=== PATIENT | female | born 1995 | race Caucasian/White ===

== ENCOUNTER → 2017-09-14 14:49 | Outpatient (CLI) | payer OTHER, SELFPAY ==
[2017-09-14 16:51] LABS: ALB/GLOB Ratio 0.9 RATIO (0.9-2.4); AST(SGOT) 13 U/L (15-37); Alanine Aminotransfer ALT/SGPT 16 U/L (13-56); Albumin, Serum 3.5 g/dL (3.2-5.0); Alkaline Phosphatase 53 U/L (45-117); Anion Gap 6 (5-15); BUN 19 mg/dL (7-18); BUN/Creat Ratio 20.3 RATIO (10-20); Chloride 103 mmol/L (98-107); Creatinine, Serum 0.94 mg/dL (0.55-1.02); EST Glomerular Filtration Rate 78 mL/min (>60); Est Glom Filt Rate - Afr Amer 94 mL/min (>60); Globulin 4.1 g/dL (2.2-4.2); Glucose 188 mg/dL (74-106); Potassium 4.1 mmol/L (3.5-5.1); Protein, Total 7.6 g/dL (6.4-8.2); Sodium Level 138 mmol/L (136-145)
[2017-09-14 16:59] LABS: Microalbumin,Random Urine 25.9 mg/L (NO RANGE EST.)
[2017-09-14 18:59] LABS: Hemoglobin A1c 7.4 % (4.2-6.3)
== END ==
PROVIDERS: Family Provider Internal Medicine; PCP Internal Medicine; Visit Provider Nurse Practitioner
DX: E10.9 Type 1 diabetes mellitus without complications (principal)
CPT/HCPCS: 36415; 80053; 82043; 82570; 83036

== ENCOUNTER → 2018-01-06 15:47 | Outpatient (CLI) | payer OTHER, SELFPAY | PROVIDERS: Visit Provider Obstetrics & Gynecology | DX: Z12.4 Encounter for screening for malignant neoplasm of cervix (principal) | CPT/HCPCS: 88175; G0145 ==

== ENCOUNTER → 2018-05-02 11:59 | Outpatient (CLI) | payer OTHER, SELFPAY ==
[2018-05-02 10:53] VITALS: BMI 24.9
[2018-05-02 13:45] LABS: Hemoglobin A1c 7.5 % (4.2-6.3)
[2018-05-02 13:55] LABS: AST(SGOT) 21 U/L (15-37); Alanine Aminotransfer ALT/SGPT 25 U/L (13-56); Albumin, Serum 3.6 g/dL (3.2-5.0); Alkaline Phosphatase 67 U/L (45-117); Anion Gap 9 (5-15); BUN 15 mg/dL (7-18); BUN/Creat Ratio 17.9 RATIO (10-20); Chloride 102 mmol/L (98-107); Creatinine, Serum 0.84 mg/dL (0.55-1.02); EST Glomerular Filtration Rate 88 mL/min (>60); Est Glom Filt Rate - Afr Amer 107 mL/min (>60); Globulin 3.7 g/dL (2.2-4.2); Glucose 188 mg/dL (74-106); Potassium 4.2 mmol/L (3.5-5.1); Protein, Total 7.3 g/dL (6.4-8.2); Sodium Level 139 mmol/L (136-145)
--- OUTSIDE RECORDS SUMMARY | 2018-08-04 02:18 | XMS RPT_ITS ---
:1995 Author Organization OHIP Support Name Relationship Address Phone TAMANNA GRANADO Unavailable [address] + [place] [address] CR CEBALLOS Unavailable [address] + [place] [address] [facility] Unavailable [address] [place] [address] TAMANNA GRANADO Unavailable [address] + [place] [address] CR CEBALLOS Unavailable [address] + [place] [address] [facility] Unavailable [address] [place] [address] CR CEBALLOS Unavailable [address] + [place] [address] [facility] Unavailable [address] [place] [address] CR CEBALLOS Unavailable [address] + [place] [address] [facility] Unavailable [address] [place] [address] CR CEBALLOS Unavailable [address] + [place] [address] [facility] Unavailable [address] [place] [address] BRICE GRANADOISSA/MONCOH Unavailable [address] + [place] [address] [facility] Unavailable [address] + [place] [address] CR CEBALLOS Unavailable [address] + [place] [address] [facility] Unavailable [address] [place] [address] MONCHO GRANADO Unavailable [address] + [place] [address] NOT GIVEN Unavailable [address] + [place] [address] CR CEBALLOS Unavailable [address] [facility] + [place] [address] STROCR POZO Unavailable [address] + [place] [address] [facility] Unavailable [address] [place] [address] CR CEBALLOS Unavailable [address] + [place] [address] [facility] Unavailable [address] [place] [address] CR CEBALLOS Unavailable [address] + [place] [address] [facility] Unavailable [address] [place] [address] Care Team Providers Name Role Phone Dr. Emery Yu Attending Unavailable Dr. Emery Yu Admitting Unavailable Shaina Marr VEHICLE OPERATOR TECHNICIAN-C Attending Unavailable Maria A, Yen Referring Unavailable ShookShaina VEHICLE OPERATOR TECHNICIAN-C Attending Unavailable ShookShaina VEHICLE OPERATOR TECHNICIAN-C Referring Unavailable Maria A, Yen Primary Care Unavailable ShoShaina suarez VEHICLE OPERATOR TECHNICIAN-C Attending Unavailable Maria A, Yen Referring Unavailable ShookShaina VEHICLE OPERATOR TECHNICIAN-C Attending Unavailable Maria A, Yen Referring Unavailable Maria A, Yen Primary Care Unavailable ShoShaina suarez VEHICLE OPERATOR TECHNICIAN-C Attending Unavailable Maria A, Yen Referring Unavailable Maria A, Yen Primary Care Unavailable ShoShaina suarez VEHICLE OPERATOR TECHNICIAN-C Attending Unavailable Maria A, Yen Referring Unavailable ShookShaina VEHICLE OPERATOR TECHNICIAN-C Attending Unavailable Maria A, Yen Referring Unavailable Shelbie Kemp Attending Unavailable ShookShaina VEHICLE OPERATOR TECHNICIAN-C Attending Unavailable ShookShaina VEHICLE OPERATOR TECHNICIAN-C Referring Unavailable Maria A, Yen Primary Care Unavailable Marlo Fernandez Attending Unavailable PROBLEMS PROBLEMS DATE TYPE CONDITION / CODE ATTENDING STATUS SOURCE 05/02/2018 Unknown E10.9 - Type 1 Shaina Marr Active [facility] diabetes mellitus VEHICLE OPERATOR TECHNICIAN-C [facility] complications / Repository E10.9(ICD-10) 05/02/2018 Unknown E11.9 - Type 2 Shaina Marr Active [facility] diabetes mellitus VEHICLE OPERATOR TECHNICIAN-C [facility] complications / Repository E11.9(ICD-10) 01/31/2018 Unknown 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 [place] [address] OFFICE VISIT Date of Service: 06/06/18 MR#: [id number] Acct: [id number] Name: CICI CONNELLY Rep #: [id number] : 1995 Provider: Shaina Marr NP Age/Sex: 23/F Location: [facility] Status: Signed HPI History of present illness Cici Ceballos is a 23 year old female who presents for diabetes type 1. Diagnosed at age 1. Continues on insulin pump therapy. . Changes infusion site every 7 days. Denies any issues with skin irritation or infection. Reports checking BG consistently. She has stopped her control in order to become . Discussed with patient need to have A1c below 7 for . Basal rates Time of Day Basal Rate 12m 0.7 6am 0.8 2p 0.9 4p 0.95 9p 1.0 i/c 12m 8 11am 9.5 5p 11 ISF 12m 110 6am 90 Time of Day Basal Rate 2pm 80 5pm 90 9pm 100 At time of visit: -Pt denies symptoms of hypertensive emergency (CP,SOB,MOTA, or blurred vision) and hypotension(dizziness or lightheadedness) -Pt denies symptoms of hypoglycemia ( sweaty, confusion, anxiety, tremor, hunger, palpitations) and hyperglycemia ( polydipsia, polyuria) -Pt denies potential medication adverse effect. Hypoglycemia Aware of hypoglycemia: When awake Able to self treat low BG: Yes Frequent low Blood sugar: No Has supply of glucagon: Yes Has disability dog Since our last visit she denies excessive thirst, increased frequency of urination, chest pain or dyspnea. Follows a diabetic diet, Is compliant with medication and is tolerating without side effects. Diet 3 meals Carb counts SMBG Has sensor Checks BG continously and manually as well A1c 7.4 Average BG last month 150 Exam Const General: comfortable, well groomed Nutritional Appearance: well nourished Orientation: oriented x3 [facility] Head: normal to inspection, normocephalic Ears: hearing grossly normal bilaterally Nose: external nose normal Face and sinus: normal facial exam Mouth: oral mucosae normal, moist mucous membranes Teeth and gingiva: dentition normal Eyes Conjunctivae: conjunctivae normal Sclera: sclerae normal Pupils: PERRL Neck Neck: normal visual inspection, full ROM, no lymphadenopathy Neck mass: No Thyroid: thyroid normal Resp Effort AND Inspection: normal respiratory effort, able to speak in complete sentences, symmetric chest movement Auscultation: Bilateral: Clear to Auscultation Cardio Rate: regular rate Rhythm: regular rhythm Heart Sounds: S1 normal, S2 normal, no murmurs, no rubs GI Inspection: normal to inspection Auscultation: normal bowel sounds Palpation: soft Skin General: no rashes or lesions noted Wounds: no wounds Diabetic Foot Pulses: L dorsalis pedis pulse: normal, R dorsalis pedis pulse: normal Monofilament test: Left foot: normal, Right foot: normal Neuro General: oriented x3, CN's II-XI intact bilaterally Cognition: normal cognition Speech: speech normal Gait: normal gait Motor: muscle tone normal throughout Extrem General: normal to inspection, full ROM, normal capillary refill Psych Appearance: grossly normal, well kempt Mood: congruent mood Affect: normal affect Speech and Movement: speech and movement normal Attitude: cooperative Thought Process: normal Thought Content: normal Judgment: judgment good Weight and fatigue symptoms: Denies snoring Cardiopulmonary symptoms: Denies chest pain at rest, dyspnea on exertion, lightheadedness or myalgias GI symptoms: Denies constipation, diarrhea, nausea/dyspepsia or vomiting Other symptoms: Denies blurry vision or change in vision Intake Vital Signs06/06/18 Body Mass Index (BMI) 24.9 Intake Visit Reasons: 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 Accompanied by: Self Allergies pineapple Allergy (Unknown, Verified 06/06/18 12:50) Unknown Medications albuterol sulfate HFA 90 mcg/actuation aerosol inhaler 2 puff INHALATION Q4H PRN 09/20/17 [History Confirmed 06/06/18] beclomethasone dipropionate 80 mcg/actuation aerosol inhaler 1 puff INHALATION BID 09/20/17 [History Confirmed 06/06/18] cholecalciferol (vitamin D3) 2,000 unit capsule 2,000 unit PO QDAY 09/20/17 [History Confirmed 06/06/18] citalopram 20 mg tablet 20 mg PO QDAY 09/20/17 [History Confirmed 06/06/18] glucagon (human recombinant) 1 mg injection kit 1 mg IM ONCE 09/20/17 [History Confirmed 06/06/18] insulin aspart U- 100 100 unit/mL subcutaneous solution 5 unit SC QDAY 09/20/17 [History Confirmed 06/06/18] Nurse's Note: blood sugars : low : high : REPLACED BY [facility] Medical History Anxiety and depression (Acute) Asthma (Acute) Back problem (Acute) Chronic headaches (Acute) Congenital ptosis (Acute) Diabetes type 1, controlled (Acute) Heart murmur (Acute) Hives (Acute) Seasonal allergies (Acute) Vitamin D deficiency (Acute) Surgical History H/O eye surgery (Acute) Family History Grandfather Arthritis Cancer Grandmother Arthritis Diabetes Father High cholesterol Kidney disease Social History Smoking Status: Never smoker second hand exposure: No alcohol intake: current substance use type: does not use ROS Const Constitutional: Positive for fatigue; no anorexia, body ache, chills, fever(s), frequent falls, decreased energy, malaise, night sweats, weakness, weight change, sleep problems, abnormal sleep pattern, change in appetite, other, headache(s), snoring or excessive sweating Eyes Eyes: No blurry vision, change in vision, double vision, discharge, dry eyes, bulging eyes, floaters, visual disturbances, eye pain, light sensitivity, spots in vision, tunnel vision or other ENT ENT: No abnormal hearing, ear pain, ear discharge, ear pressure, hearing loss, tinnitus, dizziness/vertigo, balance problems, nosebleed/epistaxis, nasal congestion, nasal obstruction, nose pain, sinus pressure, sinus pain, nasal discharge, post nasal drip, headache(s), facial pain, dental pain, dry mouth, bad breath, hoarseness, lip swelling, mouth lesions, mouth pain, sore throat, tongue swelling, throat swelling, other, difficulty swallowing or neck pain Resp Respiratory: Positive for cough, shortness of breath and wheezing; no change in phlegm color, chest congestion, excessive phlegm production, hemoptysis, pain on inspiration, pain with cough, snoring, stridor or other Cardio Cardiology: No chest pain at rest, chest pain with exertion, leg pain with exertion, excessive sweating, shortness of breath, dyspnea on exertion, generalized swelling, irregular heart rhythm, lightheadedness, orthopnea, radiating jaw, neck or arm pain, fast heart rate, slow heart rate, palpitations or other Gastro GI: No abdominal pain, belching, bloating, change in bowel habits, change in stool character, coffee ground emesis, constipation, cramping, diarrhea, heartburn, difficulty swallowing, feeling full early, excessive flatus, incontinent of stools, Vomiting blood/hematemesis, blood in stool, loose stools, Black,tarry stools, nausea/dyspepsia, pain with swallowing, vomiting or other Genitourinary-Female: No difficulty urinating, burning urination, painful urination, urinary incontinence, urinary frequency, urinary urgency, urinary hesitancy, urinary retention, blood in urine, Frequent nighttime urination/ nocturia, post void dribbling, suprapubic fullness, side pain, sexual problems, genital lesions, genital itching, hot flashes, abnormal periods, abnormal vaginal bleeding, absent period, painful periods, light periods, heavy periods, difficulty getting , painful intercourse, pelvic pain, vaginal dryness, vaginal odor, Vaginal Itching or other Musc Musculoskeletal: No abnormal walking, joint pain, back pain, deformity, joint swelling, limited range of motion, loss of height, muscle cramps, muscle weakness, decreased muscle mass, body aches, neck pain, numbness, radiating pain into limb, stiffness, tingling or other Skin Skin: No acne, hair loss, change in hair, nail changes, boil, change in skin color, dry skin, redness, excessive hair growth, yellowing of the skin, lesions, itching, rash, skin pain, skin ulcer, sores, skin swelling, wounds or other Breast Breast: No other Neuro Neurology: No frequent falls, weakness, visual disturbances, abnormal hearing, headache(s), abnormal walking, numbness or tingling Psych Psychiatric: No abnormal sleep pattern, No change in appetite Endo Endocrine: Positive for fatigue; no other or excessive sweating Aller/Imm Allergy/Immunologic: Positive for wheezing; no lip swelling, tongue swelling, throat swelling or itchy eyes Assessment AND Plan Problems 1. Type 1 diabetes mellitus without complications E10.9 Plan Has been doing fairly well except for the last 2 days she reports BG low followed by signficant rebound high BG. Just home from [place] where she was for one week. Denies any issues while she was there. Now she feels BG are more varied Patient Instructions Change basal from basal 2 to basal 1. Bolus for meals 0-15 minutes before you eat. Use 8-10 carbs for low Bg; do not use rule of 15. Change active insulin to 3.5 hours Download in 1 week for further review Plan Detail Additional Comments 1. Please schedule follow up in 1 month 2. Lab work one week before appointment. 3. Discussed importance of regular exercise and recommend starting or continuing a regular exercise program for good health. 4. The patient was encouraged to lose weight for good health 5. The importance of monitoring blood sugar regularly was reviewed. 6. The importance of monitoring the HBA1c level regularly was reviewed. 7. The importance of prper foot care and regularly checking feet to prevent sores and loss of limbs was reviewed. 8. The importance of keeping BP at or below 130/80 to prevent stroke, heart attacks, kidney failure, blindness was reviewed. Spent approximately 30 minutes with patient with over 50% of time spent in discussion and counseling regarding medication adjustment, symptoms and treatment of hypoglycemia, diet adherence, and checking BG before driving. Coding Level of Care Code Off vis,est,level 4 Diagnoses Type 1 diabetes mellitus without complications E10.9 06/06/18 191 <Electronically signed by Shaina SCHULTZ> Date Shaina SCHULTZ Cosigner Signature: Date (if applicable) CC: ENDOCRINOLOGY VISIT Observed: 05/02/2018 Status: F Source: [facility] REPORT 1:15 PM [facility]IT[facility] [address] [place] [address] OFFICE VISIT Date of Service: 05/02/18 MR#: [id number] Acct: [id number] Name: CICI CONNELLY Rep #: [id number] : 1995 Provider: Shaina Marr NP Age/Sex: 22/F Location: [facility] Status: Signed HPI History of present illness Cici Ceballos is a 22 year old femal who presents for diabetes type 1. Diagnosed at age 1. Continues on insulin pump therapy. . Changes infusion site every 7 days. Denies any issues with skin irritation or infection. Reports checking BG consistently. Reports frequent low BG. Reports today she has stopped her control in order to become . Discussed with patient need to have A1c below 7 for . Basal rates Time of Day Basal Rate 12m 0.7 6am 0.8 2p 0.9 4p 0.95 9p 1.0 i/c 12m 8 11am 9.5 5p 11 ISF 12m 110 6am 90 Time of Day Basal Rate 2pm 80 5pm 90 9pm 100 At time of visit: -Pt denies symptoms of hypertensive emergency (CP,SOB,MOTA, or blurred vision) and hypotension(dizziness or lightheadedness) -Pt denies symptoms of hypoglycemia ( sweaty, confusion, anxiety, tremor, hunger, palpitations) and hyperglycemia ( polydipsia, polyuria) -Pt denies potential medication adverse effect. Hypoglycemia Aware of hypoglycemia: When awake Able to self treat low BG: Yes Frequent low Blood sugar: No Has supply of glucagon: Yes Has disability dog Since our last visit she denies excessive thirst, increased frequency of urination, chest pain or dyspnea. Follows a diabetic diet, Is compliant with medication and is tolerating without side effects. Diet 3 meals Carb counts SMBG Has sensor Checks BG continously and manually as well A1c 7.4 Average BG last month 150 Exam Const General: comfortable, well groomed Nutritional Appearance: well nourished Orientation: oriented x3 [facility] Head: normal to inspection, normocephalic Ears: hearing grossly normal bilaterally Nose: external nose normal Face and sinus: normal facial exam Mouth: oral mucosae normal, moist mucous membranes Teeth and gingiva: dentition normal Eyes Conjunctivae: conjunctivae normal Sclera: sclerae normal Pupils: PERRL Neck Neck: normal visual inspection, full ROM, no lymphadenopathy Neck mass: No Thyroid: thyroid normal Resp Effort AND Inspection: normal respiratory effort, able to speak in complete sentences, symmetric chest movement Auscultation: Bilateral: Clear to Auscultation Cardio Rate: regular rate Rhythm: regular rhythm Heart Sounds: S1 normal, S2 normal, no murmurs, no rubs GI Inspection: normal to inspection Auscultation: normal bowel sounds Palpation: soft Skin General: no rashes or lesions noted Wounds: no wounds Diabetic Foot Pulses: L dorsalis pedis pulse: normal, R dorsalis pedis pulse: normal Monofilament test: Left foot: normal, Right foot: normal Neuro General: oriented x3, CN's II-XI intact bilaterally Cognition: normal cognition Speech: speech normal Gait: normal gait Motor: muscle tone normal throughout Extrem General: normal to inspection, full ROM, normal capillary refill Psych Appearance: grossly normal, well kempt Mood: congruent mood Affect: normal affect Speech and Movement: speech and movement normal Attitude: cooperative Thought Process: normal Thought Content: normal Judgment: judgment good Type: type 1, insulin-requiring Glucose control symptoms: Reports daytime hypoglycemia Weight and fatigue symptoms: Denies snoring Cardiopulmonary symptoms: Reports lightheadedness; denies chest pain at rest, dyspnea on exertion or myalgias GI symptoms: Denies constipation, diarrhea, nausea/dyspepsia or vomiting Skin and extremity symptoms: Denies tingling/numbness/burning Other symptoms: Denies blurry vision or change in vision Pertinent visit history: Denies recent visit to ER, recent hospital admission or recent 911 calls Self monitoring: Yes Percentage of fasting blood glucose within goal: >50% of the time Dietary compliance: Diabetes: good Diabetes education in past year: Yes Glucose testing: demonstrates correct use of meter, 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 Sick day education - understands ketone testing: Yes Physical activity: regular Intake Vital Signs05/02/18 Height 5 ft 4 in Intake Visit Reasons: Diabetes 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 Accompanied by: Self Allergies pineapple Allergy (Unknown, Verified 05/02/18 10:52) Unknown Medications albuterol sulfate HFA 90 mcg/actuation aerosol inhaler 2 puff INHALATION Q4H PRN 09/20/17 [History Confirmed 05/02/18] beclomethasone dipropionate 80 mcg/actuation aerosol inhaler 1 puff INHALATION BID 09/20/17 [History Confirmed 05/02/18] cholecalciferol (vitamin D3) 2,000 unit capsule 2,000 unit PO QDAY 09/20/17 [History Confirmed 05/02/18] citalopram 20 mg tablet 20 mg PO QDAY 09/20/17 [History Confirmed 05/02/18] glucagon (human recombinant) 1 mg injection kit 1 mg IM ONCE 09/20/17 [History Confirmed 05/02/18] insulin aspart U- 100 100 unit/mL subcutaneous solution 5 unit SC QDAY 09/20/17 [History Confirmed 05/02/18] Nurse's Note: blood sugars : low : <40 high : 300 PFSH Medical History Anxiety and depression (Acute) Asthma (Acute) Back problem (Acute) Chronic headaches (Acute) Congenital ptosis (Acute) Diabetes type 1, controlled (Acute) Heart murmur (Acute) Hives (Acute) Seasonal allergies (Acute) Vitamin D deficiency (Acute) Surgical History H/O eye surgery (Acute) Family History Grandfather Arthritis Cancer Grandmother Arthritis Diabetes Father High cholesterol Kidney disease Social History Smoking Status: Never smoker second hand exposure: No alcohol intake: current substance use type: does not use ROS Const Constitutional: Positive for fatigue; no anorexia, body ache, chills, fever(s), frequent falls, decreased energy, malaise, night sweats, weakness, weight change, sleep problems, abnormal sleep pattern, change in appetite, other, headache(s), snoring or excessive sweating Eyes Eyes: No blurry vision, change in vision, double vision, discharge, dry eyes, bulging eyes, floaters, visual disturbances, eye pain, light sensitivity, spots in vision, tunnel vision or other ENT ENT: Positive for nasal congestion and nasal discharge; no abnormal hearing, ear pain, ear discharge, ear pressure, hearing loss, tinnitus, dizziness/vertigo, balance problems, nosebleed/epistaxis, nasal obstruction, nose pain, sinus pressure, sinus pain, post nasal drip, headache(s), facial pain, dental pain, dry mouth, bad breath, hoarseness, lip swelling, mouth lesions, mouth pain, sore throat, tongue swelling, throat swelling, other, difficulty swallowing or neck pain Resp Respiratory: No cough, change in phlegm color, chest congestion, excessive phlegm production, hemoptysis, pain on inspiration, shortness of breath, pain with cough, snoring, stridor, wheezing or other Cardio Cardiology: Positive for lightheadedness; no chest pain at rest, chest pain with exertion, leg pain with exertion, excessive sweating, shortness of breath, dyspnea on exertion, generalized swelling, irregular heart rhythm, orthopnea, radiating jaw, neck or arm pain, fast heart rate, slow heart rate, palpitations or other Gastro GI: No abdominal pain, belching, bloating, change in bowel habits, change in stool character, coffee ground emesis, constipation, cramping, diarrhea, heartburn, difficulty swallowing, feeling full early, excessive flatus, incontinent of stools, Vomiting blood/hematemesis, blood in stool, loose stools, Black,tarry stools, nausea/dyspepsia, pain with swallowing, vomiting or other Genitourinary-Female: No difficulty urinating, burning urination, painful urination, urinary incontinence, urinary frequency, urinary urgency, urinary hesitancy, urinary retention, blood in urine, Frequent nighttime urination/ nocturia, post void dribbling, suprapubic fullness, side pain, sexual problems, genital lesions, genital itching, hot flashes, abnormal periods, abnormal vaginal bleeding, absent period, painful periods, light periods, heavy periods, difficulty getting , painful intercourse, pelvic pain, vaginal dryness, vaginal odor, Vaginal Itching or other Musc Musculoskeletal: No abnormal walking, joint pain, back pain, deformity, joint swelling, limited range of motion, loss of height, muscle cramps, muscle weakness, decreased muscle mass, body aches, neck pain, numbness, radiating pain into limb, stiffness, tingling or other Skin Skin: No acne, hair loss, change in hair, nail changes, boil, change in skin color, dry skin, redness, excessive hair growth, yellowing of the skin, lesions, itching, rash, skin pain, skin ulcer, sores, skin swelling, wounds or other Breast Breast: No other Neuro Neurology: No frequent falls, weakness, visual disturbances, abnormal hearing, headache(s), abnormal walking, numbness or tingling Psych Psychiatric: No abnormal sleep pattern, No change in appetite Endo Endocrine: Positive for fatigue; no other or excessive sweating Aller/Imm Allergy/Immunologic: No lip swelling, tongue swelling, throat swelling, wheezing or itchy eyes Assessment AND Plan 1. Type 1 diabetes mellitus without complication E10.9 Plan Continues with 670g medtronic pump. Noted today she is only changing her infusion set every 6 days. Instructed to change every 3 days. Notes frequent low Bg with correction. Will adjust ISF as well as her active insulin. ISF 12m=20 [id number] 10pm 120 Active insulin from 3 hours to 3.5 Discussed requirements of BG for and A1c to 7 range or below. Not on statin or jimmy inhibitor. Labs due today. RTC 1 month Plan Detail Other Orders Orders: Additional Comments 1. Please schedule follow up in 1 month 2. Lab work one week before appointment. 3. Discussed importance of regular exercise and recommend starting or continuing a regular exercise program for good health. 4. The patient was encouraged to lose weight for good health 5. The importance of monitoring blood sugar regularly was reviewed. 6. The importance of monitoring the HBA1c level regularly was reviewed. 7. The importance of prper foot care and regularly checking feet to prevent sores and loss of limbs was reviewed. 8. The importance of keeping BP at or below 130/80 to prevent stroke, heart attacks, kidney failure, blindness was reviewed. Spent approximately 30 minutes with patient with over 50% of time spent in discussion and counseling regarding medication adjustment, symptoms and treatment of hypoglycemia, diet adherence, and checking BG before driving. Coding Level of Care Code Off vis,est,level 4 Diagnoses Type 1 diabetes mellitus without complication E10.9 05/02/18 1315 <Electronically signed by Shaina SCHULTZ> Date Shaina SCHULTZ Cosigner Signature: Date (if applicable) CC: HEMOGLOBIN A1C Collected: 05/02/2018 Status: F Source: [facility] 12:12 PM [facility] [place] CODE TESTS RESULT OUT OF RANGE REFERENCE UNITS LAB L501.9985 4.2-6.3 % High HGB A1C 7.5 Performed By: #### L501.9985 #### [facility] [address] [place], [place], [address] COMPREHENSIVE METABOLIC Collected: 05/02/2018 Status: F Source: [facility] 12:12 PM [facility] [place] TYPE CODE TESTS RESULT OUT OF RANGE REFERENCE UNITS LAB L501.0100 74-106 mg/dL High GLU 188 Result Comment: Fasting Glucose result greater than or equal to 126 mg/dL suggests DIABETES MELLITUS per A.D.A. criteria. Please note revised GLUCOSE reference range effective 2017. LAB L501.1000 7-18 mg/dL Normal BUN 15 LAB L501.1100 0.55-1.02 mg/dL Normal CREAT,SERUM 0.84 Result Comment: The validity of the calculated GFR AND GFRAA in patients over 70 years has not been determined. Clinical correlation is essential. LAB L501.1110 >60 mL/min Normal EST GFR 88 Result Comment: Non- GFR Calc LAB L501.1115 >60 mL/min Normal EST GFR - AA 107 Result Comment: GFR Calc LAB L501.1300 10-20 RATIO Normal BUN/CRE 17.9 LAB L501.1500 6.4-8.2 g/dL T Normal PROT 7.3 LAB L501.1800 3.2-5.0 g/dL Normal ALB 3.6 LAB L501.1950 2.2-4.2 g/dL Normal GLOB 3.7 LAB L501.2000 0.9-2.4 RATIO Normal A/G 1.0 LAB L501.2200 8.5-10.1 mg/dL CA Normal 9.0 LAB L501.4100 15-37 U/L Normal AST 21 LAB L501.4305 45-117 U/L Normal ALK P 67 LAB L501.4405 13-56 U/L Normal ALT 25 LAB L501.4600 0.20-1.00 mg/dL T Normal BILI 0.40 LAB L501.5300 136-145 mmol/L NA Normal 139 LAB L501.5600 3.5-5.1 mmol/L K Normal 4.2 LAB L501.5900 98-107 mmol/L CL Normal 102 LAB L501.6100 21.0-32.0 mmol/L Normal CO2 28.0 LAB L501.6200 5-15 Normal GAP 9 Performed By: #### L500.4050, L501.9520 #### [facility] [address] [place], [address] THYROID STIM HORMONE Collected: 05/02/2018 Status: F Source: [facility] ([facility]) 12:12 PM [facility] [place] TYPE CODE TESTS RESULT OUT OF RANGE REFERENCE UNITS LAB L501.9520 0.358-3.74 uIU/mL Normal TSH 2.10 Performed By: #### L500.4050, L501.9520 #### [facility] [address] [place], [place], [address] ENDOCRINOLOGY VISIT Observed: 01/31/2018 Status: F Source: [facility] RE[facility] 7:11 PM [facility] [place] [facility] [address] [place] [address] OFFICE VISIT Date of Service: 01/31/18 MR#: [id number] Acct: [id number] Name: CICI CONNELLY Rep #: [id number] : 1995 Provider: Shaina Marr NP Age/Sex: 22/F Location: [facility] Status: Signed HPI History of present illness HPI History of present illness Cici Ceballos is a 22 year old femal who presents for diabetes type 1. Diagnosed at age 1. Continues on insulin pump therapy. . Changes infusion site every 3 days. Denies any issues with skin irritation or infection. Reports checking BG consistently Recently had asthma attack and presented to ER. Given prednisone which created elevated BG readings. Auto mode was unable to handle the higher BG Time of Day Basal Rate 12m 0.7 6am 0.8 2p 0.9 4p 0.95 9p 1.0 i/c 12m 8 11am 9.5 5p 11 ISF 12m 110 6am 90 Time of Day Basal Rate 2pm 80 5pm 90 9pm 100 At time of visit: -Pt denies symptoms of hypertensive emergency (CP,SOB,MOTA, or blurred vision) and hypotension(dizziness or lightheadedness) -Pt denies symptoms of hypoglycemia ( sweaty, confusion, anxiety, tremor, hunger, palpitations) and hyperglycemia ( polydipsia, polyuria) -Pt denies potential medication adverse effect. Hypoglycemia Aware of hypoglycemia: When awake Able to self treat low BG: Yes Frequent low Blood sugar: No Has supply of glucagon: Yes Has disability dog Since our last visit she denies excessive thirst, increased frequency of urination, chest pain or dyspnea. Follows a diabetic diet, Is compliant with medication and is tolerating without side effects. Diet 3 meals Carb counts SMBG Has sensor Checks BG continously and manually as well A1c 7.4 Average BG last month 150 Exam Const General: comfortable, well groomed Nutritional Appearance: well nourished Orientation: oriented x3 [facility] Head: normal to inspection, normocephalic Ears: hearing grossly normal bilaterally Nose: external nose normal Face and sinus: normal facial exam Mouth: oral mucosae normal, moist mucous membranes Teeth and gingiva: dentition normal Eyes Conjunctivae: conjunctivae normal Sclera: sclerae normal Pupils: PERRL Neck Neck: normal visual inspection, full ROM, no lymphadenopathy Neck mass: No Thyroid: thyroid normal Resp Effort AND Inspection: normal respiratory effort, able to speak in complete sentences, symmetric chest movement Auscultation: Bilateral: Clear to Auscultation Cardio Rate: regular rate Rhythm: regular rhythm Heart Sounds: S1 normal, S2 normal, no murmurs, no rubs GI Inspection: normal to inspection Auscultation: normal bowel sounds Palpation: soft Skin General: no rashes or lesions noted Wounds: no wounds Diabetic Foot Pulses: L dorsalis pedis pulse: normal, R dorsalis pedis pulse: normal Monofilament test: Left foot: normal, Right foot: normal Neuro General: oriented x3, CN's II-XI intact bilaterally Cognition: normal cognition Speech: speech normal Gait: normal gait Motor: muscle tone normal throughout Extrem General: normal to inspection, full ROM, normal capillary refill Psych Appearance: grossly normal, well kempt Mood: congruent mood Affect: normal affect Speech and Movement: speech and movement normal Attitude: cooperative Thought Process: normal Thought Content: normal Judgment: judgment good Type: type 1, insulin-requiring Glucose control symptoms: Reports hypoglycemic with activity and nocturnal hypoglycemia Weight and fatigue symptoms: Denies snoring Cardiopulmonary symptoms: Denies chest pain at rest, dyspnea on exertion, lightheadedness or myalgias GI symptoms: Denies constipation, diarrhea, nausea/dyspepsia or vomiting Other symptoms: Denies blurry vision or change in vision Pertinent visit history: Denies recent visit to ER, recent DKA or recent glucagon injection Self monitoring: Yes Percentage of fasting blood glucose within goal: >50% of the time Dietary compliance: Diabetes: good Diabetes education in past year: Yes Glucose testing: demonstrates correct use of meter, 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 Physical activity: regular Intake Vital Signs01/31/18 Height 5 ft 4 in 01/31/18 Weight: 147 lb 8 oz 01/31/18 Body Mass Index (BMI) 25.3 01/31/18 Blood Pressure 109/76 01/31/18 Blood Pressure Location Lt popliteal 01/31/18 Blood Pressure Position Sitting Intake Visit Reasons: Diabetes 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 Accompanied by: Self Is patient in pain?: No Allergies pineapple Allergy (Unknown, Verified 01/31/18 14:51) Unknown Medications albuterol sulfate HFA 90 mcg/actuation aerosol inhaler 2 puff INHALATION Q4H PRN 09/20/17 [History Confirmed 01/31/18] beclomethasone dipropionate 80 mcg/actuation aerosol inhaler 1 puff INHALATION BID 09/20/17 [History Confirmed 01/31/18] cholecalciferol (vitamin D3) 2,000 unit capsule 2,000 unit PO QDAY 09/20/17 [History Confirmed 01/31/18] citalopram 20 mg tablet 20 mg PO QDAY 09/20/17 [History Confirmed 01/31/18] drospirenone 3 mg-ethinyl estradiol 0.02 mg tablet 1 tab PO QDAY 09/20/17 [History Confirmed 01/31/18] glucagon (human recombinant) 1 mg injection kit 1 mg IM ONCE 09/20/17 [History Confirmed 01/31/18] insulin aspart U-100 100 unit/mL subcutaneous solution 5 unit SC QDAY 09/20/17 [History Confirmed 01/31/18] Is last menstrual period known: No Post menopausal: No Patient : No Nurse's Note: blood sugars : low : 40 high : 300 PFSH Medical History Anxiety and depression (Acute) Asthma (Acute) Back problem (Acute) Chronic headaches (Acute) Congenital ptosis (Acute) Diabetes type 1, controlled (Acute) Heart murmur (Acute) Hives (Acute) Seasonal allergies (Acute) Vitamin D deficiency (Acute) Surgical History H/O eye surgery (Acute) Family History Grandfather Arthritis Cancer Grandmother Arthritis Diabetes Father High cholesterol Kidney disease Social History Smoking Status: Never smoker second hand exposure: No alcohol intake: current substance use type: does not use ROS Const Constitutional: Positive for fatigue; no anorexia, body ache, chills, fever(s), frequent falls, decreased energy, malaise, night sweats, weakness, weight change, sleep problems, abnormal sleep pattern, change in appetite, other, headache(s), snoring or excessive sweating Eyes Eyes: No blurry vision, change in vision, double vision, discharge, dry eyes, bulging eyes, floaters, visual disturbances, eye pain, light sensitivity, spots in vision, tunnel vision or other ENT ENT: Positive for nasal congestion and nasal discharge; no abnormal hearing, ear pain, ear discharge, ear pressure, hearing loss, tinnitus, dizziness/vertigo, balance problems, nosebleed/epistaxis, nasal obstruction, nose pain, sinus pressure, sinus pain, post nasal drip, headache(s), facial pain, dental pain, dry mouth, bad breath, hoarseness, lip swelling, mouth lesions, mouth pain, sore throat, tongue swelling, throat swelling, other, difficulty swallowing or neck pain Resp Respiratory: No cough, change in phlegm color, chest congestion, excessive phlegm production, hemoptysis, pain on inspiration, shortness of breath, pain with cough, snoring, stridor, wheezing or other Cardio Cardiology: No chest pain at rest, chest pain with exertion, leg pain with exertion, excessive sweating, shortness of breath, dyspnea on exertion, generalized swelling, irregular heart rhythm, lightheadedness, orthopnea, radiating jaw, neck or arm pain, fast heart rate, slow heart rate, palpitations or other Gastro GI: No abdominal pain, belching, bloating, change in bowel habits, change in stool character, coffee ground emesis, constipation, cramping, diarrhea, heartburn, difficulty swallowing, feeling full early, excessive flatus, incontinent of stools, Vomiting blood/hematemesis, blood in stool, loose stools, Black,tarry stools, nausea/dyspepsia, pain with swallowing, vomiting or other Genitourinary-Female: No difficulty urinating, burning urination, painful urination, urinary incontinence, urinary frequency, urinary urgency, urinary hesitancy, urinary retention, blood in urine, Frequent nighttime urination/ nocturia, post void dribbling, suprapubic fullness, side pain, sexual problems, genital lesions, genital itching, hot flashes, abnormal periods, abnormal vaginal bleeding, absent period, painful periods, light periods, heavy periods, difficulty getting , painful intercourse, pelvic pain, vaginal dryness, vaginal odor, Vaginal Itching or other Musc Musculoskeletal: No abnormal walking, joint pain, back pain, deformity, joint swelling, limited range of motion, loss of height, muscle cramps, muscle weakness, decreased muscle mass, body aches, neck pain, numbness, radiating pain into limb, stiffness, tingling or other Skin Skin: No acne, hair loss, change in hair, nail changes, boil, change in skin color, dry skin, redness, excessive hair growth, yellowing of the skin, lesions, itching, rash, skin pain, skin ulcer, sores, skin swelling, wounds or other Breast Breast: No other Neuro Neurology: No frequent falls, weakness, visual disturbances, abnormal hearing, headache(s), abnormal walking, numbness or tingling Psych Psychiatric: No abnormal sleep pattern, No change in appetite Endo Endocrine: Positive for fatigue; no other or excessive sweating Aller/Imm Allergy/Immunologic: No lip swelling, tongue swelling, throat swelling, wheezing or itchy eyes Assessment AND Plan 1. Type 1 diabetes mellitus without complication E10.9 Plan I/C ratio changed due to low BG with meal coverage at lunch and evening meal. No change needed with ISF lunch = 9.5 dinner= 12 Labs ordered. Sensor and insulin pump downloaded. Having issues with her sensors not connecting when new sensor started. Orders Orders: Plan Detail Other Orders Orders: Additional Comments 1. Please schedule follow up in 3 months. 2. Lab work one week before appointment. 3. Discussed importance of regular exercise and recommend starting or continuing a regular exercise program for good health. 4. The patient was encouraged to lose weight for good health 5. The importance of monitoring blood sugar regularly was reviewed. 6. The importance of monitoring the HBA1c level regularly was reviewed. 7. The importance of prper foot care and regularly checking feet to prevent sores and loss of limbs was reviewed. 8. The importance of keeping BP at or below 130/80 to prevent stroke, heart attacks, kidney failure, blindness was reviewed. Spent approximately 30 minutes with patient with over 50% of time spent in discussion and counseling regarding medication adjustment, symptoms and treatment of hypoglycemia, diet adherence, and checking BG before driving. Coding Level of Care Code Off vis,est,level 4 Diagnoses Type 1 diabetes mellitus without complication E10.9 Diabetes mellitus type: type 1 Diabetes mellitus complication status: without complication 01/31/181910 <Electronically signed by Shaina SCHULTZ> Date Shaina SCHULTZ Cosigner Signature: Date (if applicable) CC: PAP TEST I-G Collected: 01/06/2018 Status: F Source: [facility] 12:30 PM [facility] [place] Order Comment: CYTOLOGY INFORMATION: - CLINICAL INFORMATION: - DATE LMP/MENOPAUSE: 12/29/17 LMP - COLLECTION VIAL: Thin Prep Vial - PREASSEMBLER AND INSPECTOR SOURCE: CERVICAL/ENDOCERVICAL - COLLECTION TECHNIQUE: BRUSH/SPATULA Specimen Comment: [id number] Specimen Comment: No. of containers..01 ThinPrep Vial TYPE CODE TESTS RESULT OUT OF RANGE REFERENCE UNITS LAB L7400.0800 . Normal DIAGN Comment Result Comment: NEGATIVE FOR INTRAEPITHELIAL LESION AND MALIGNANCY. LAB L7400.0900 . Normal ADEQ Comment Result Comment: Satisfactory for evaluation. Endocervical and/or squamous metaplastic cells (endocervical component) are present. LAB L7400.1400 . Normal PERFORM Comment Result Comment: Tanner Gonzalez, Database Programmer (ASCP) LAB L7400.2575 . Normal TEST METHOD Comment Result Comment: This liquid based ThinPrep(R) pap test was screened with the use of an image guided system. Performed at: - [facility] [id number] Erp Project Manager: Sammi Collins MD, Phone: [phone] LAB L7400.1503 . Normal . COMM LAB L7400.2700 . Normal PAPSMR Comment Result Comment: The Pap smear is a screening test designed to aid in the detection of premalignant and malignant conditions of the uterine cervix. It is not a diagnostic procedure and should not be used as the sole means of detecting cervical cancer. Both false-positive and false-negative reports do occur. Performed By: #### L7400.0399 #### [facility] (refer to report for specific site) refer to report for address and phone number ENDOCRINOLOGY VISIT Observed: 01/05/2018 Status: F Source: [facility] RE[facility] 2:22 PM [facility] [place] [facility] [address] [place] [address]. [address] [place] [address] OFFICE VISIT Date of Service: 01/05/18 MR#: [id number] Acct: [id number] Name: CICI CONNELLY Rep #: [id number] : 1995 Provider: Shaina Marr NP Age/Sex: 22/F Location: [facility] Status: Signed HPI History of present illness Cici Ceballos is a 22 year old femal who presents for diabetes type 1. Diagnosed at age 1. Continues on insulin pump therapy. . Changes infusion site every 3 days. Denies any issues with skin irritation or infection. Reports checking BG consistently Recently had asthma attack and presented to ER. Given prednisone which created elevated BG readings. Auto mode was unable to handle the higher BG Time of Day Basal Rate 12m 0.7 6am 0.8 2p 0.9 4p 0.95 9p 1.0 i/c 12m 8 11am 9.5 5p 11 ISF 12m 110 6am 90 Time of Day Basal Rate 2pm 80 5pm 90 9pm 100 At time of visit: -Pt denies symptoms of hypertensive emergency (CP,SOB,MOTA, or blurred vision) and hypotension(dizziness or lightheadedness) -Pt denies symptoms of hypoglycemia ( sweaty, confusion, anxiety, tremor, hunger, palpitations) and hyperglycemia ( polydipsia, polyuria) -Pt denies potential medication adverse effect. Hypoglycemia Aware of hypoglycemia: When awake Able to self treat low BG: Yes Frequent low Blood sugar: No Has supply of glucagon: Yes Has disability dog Since our last visit he denies excessive thirst, increased frequency of urination, chest pain or dyspnea. Follows a diabetic diet, Is compliant with medication and is tolerating without side effects. Diet 3 meals Carb counts SMBG Has sensor Checks BG continously and manually as well Exam Const General: comfortable, well groomed Nutritional Appearance: well nourished Orientation: oriented x3 [facility] Head: normal to inspection, normocephalic Ears: hearing grossly normal bilaterally Nose: external nose normal Face and sinus: normal facial exam Mouth: oral mucosae normal, moist mucous membranes Teeth and gingiva: dentition normal Eyes Conjunctivae: conjunctivae normal Sclera: sclerae normal Pupils: PERRL Neck Neck: normal visual inspection, full ROM, no lymphadenopathy Neck mass: No Thyroid: thyroid normal Resp Effort AND Inspection: normal respiratory effort, able to speak in complete sentences, symmetric chest movement Auscultation: Bilateral: Clear to Auscultation Cardio Rate: regular rate Rhythm: regular rhythm Heart Sounds: S1 normal, S2 normal, no murmurs, no rubs GI Inspection: normal to inspection Auscultation: normal bowel sounds Palpation: soft Skin General: no rashes or lesions noted Wounds: no wounds Diabetic Foot Pulses: L dorsalis pedis pulse: normal, R dorsalis pedis pulse: normal Monofilament test: Left foot: normal, Right foot: normal Neuro General: oriented x3, CN's II-XI intact bilaterally Cognition: normal cognition Speech: speech normal Gait: normal gait Motor: muscle tone normal throughout Extrem General: normal to inspection, full ROM, normal capillary refill Psych Appearance: grossly normal, well kempt Mood: congruent mood Affect: normal affect Speech and Movement: speech and movement normal Attitude: cooperative Thought Process: normal Thought Content: normal Judgment: judgment good Type: type 1, insulin-requiring Weight and fatigue symptoms: Denies snoring Cardiopulmonary symptoms: Reports chest pain at rest; denies dyspnea on exertion, lightheadedness or myalgias GI symptoms: Denies constipation, diarrhea, nausea/dyspepsia or vomiting Other symptoms: Denies blurry vision or change in vision Self monitoring: Yes Percentage of fasting blood glucose within goal: >50% of the time Dietary compliance: Diabetes: good Diabetes education in past year: Yes Glucose testing: demonstrates correct use of meter, 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, plant quality manager Sick day education - understands ketone testing: Yes Physical activity: regular Intake Vital Signs01/05/18 Height 5 ft 4 in 01/05/18 Weight: 148 lb 01/05/18 Body Mass Index (BMI) 25.4 01/05/18 Blood Pressure 101/68 01/05/18 Blood Pressure Location Lt popliteal 01/05/18 Blood Pressure Position Sitting Intake Visit Reasons: 3 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 Accompanied by: Self Is patient in pain?: No Allergies pineapple Allergy (Unknown, Verified 01/05/18 09:09) Unknown Medications albuterol sulfate HFA 90 mcg/actuation aerosol inhaler 2 puff INHALATION Q4H PRN 09/20/17 [History Confirmed 01/05/18] beclomethasone dipropionate 80 mcg/actuation aerosol inhaler 1 puff INHALATION BID 09/20/17 [History Confirmed 01/05/18] cholecalciferol (vitamin D3) 2,000 unit capsule 2,000 unit PO QDAY 09/20/17 [History Confirmed 01/05/18] citalopram 20 mg tablet 20 mg PO QDAY 09/20/17 [History Confirmed 01/05/18] drospirenone-ethinyl estradiol 3 mg-0.02 mg (24) tablet 1 tab PO QDAY 09/20/17 [History Confirmed 01/05/18] glucagon (human recombinant) 1 mg injection kit 1 mg IM ONCE 09/20/17 [History Confirmed 01/05/18] insulin aspart U-100 100 unit/mL subcutaneous solution 5 unit SC QDAY 09/20/17 [History Confirmed 01/05/18] Is last menstrual period known: No Post menopausal: No Patient : No Nurse's Note: blood sugars : low : 40 high : 340 REPLACED BY [facility] Medical History Anxiety and depression (Acute) Asthma (Acute) Back problem (Acute) Chronic headaches (Acute) Congenital ptosis (Acute) Diabetes type 1, controlled (Acute) Heart murmur (Acute) Hives (Acute) Seasonal allergies (Acute) Vitamin D deficiency (Acute) Surgical History H/O eye surgery (Acute) Family History Grandfather Arthritis Cancer Grandmother Arthritis Diabetes Father High cholesterol Kidney disease Social History Smoking Status: Never smoker second hand exposure: No alcohol intake: current substance use type: does not use ROS Const Constitutional: No anorexia, body ache, chills, fatigue, fever(s), frequent falls, decreased energy, malaise, night sweats, weakness, weight change, sleep problems, abnormal sleep pattern, change in appetite, other, headache(s), snoring or excessive sweating Eyes Eyes: No blurry vision, change in vision, double vision, discharge, dry eyes, bulging eyes, floaters, visual disturbances, eye pain, light sensitivity, spots in vision, tunnel vision or other ENT ENT: Positive for nasal congestion and nasal discharge; no abnormal hearing, ear pain, ear discharge, ear pressure, hearing loss, tinnitus, dizziness/vertigo, balance problems, nosebleed/epistaxis, nasal obstruction, nose pain, sinus pressure, sinus pain, post nasal drip, headache(s), facial pain, dental pain, dry mouth, bad breath, hoarseness, lip swelling, mouth lesions, mouth pain, sore throat, tongue swelling, throat swelling, other, difficulty swallowing or neck pain Resp Respiratory: Positive for cough, chest congestion, shortness of breath and wheezing; no change in phlegm color, excessive phlegm production, hemoptysis, pain on inspiration, pain with cough, snoring, stridor or other Cardio Cardiology: Positive for chest pain at rest; no chest pain with exertion, leg pain with exertion, excessive sweating, shortness of breath, dyspnea on exertion, generalized swelling, irregular heart rhythm, lightheadedness, orthopnea, radiating jaw, neck or arm pain, fast heart rate, slow heart rate, palpitations or other Gastro GI: No abdominal pain, belching, bloating, change in bowel habits, change in stool character, coffee ground emesis, constipation, cramping, diarrhea, heartburn, difficulty swallowing, feeling full early, excessive flatus, incontinent of stools, Vomiting blood/hematemesis, blood in stool, loose stools, Black,tarry stools, nausea/dyspepsia, pain with swallowing, vomiting or other Genitourinary-Female: No difficulty urinating, burning urination, painful urination, urinary incontinence, urinary frequency, urinary urgency, urinary hesitancy, urinary retention, blood in urine, Frequent nighttime urination/ nocturia, post void dribbling, suprapubic fullness, side pain, sexual problems, genital lesions, genital itching, hot flashes, abnormal periods, abnormal vaginal bleeding, absent period, painful periods, light periods, heavy periods, difficulty getting , painful intercourse, pelvic pain, vaginal dryness, vaginal odor, Vaginal Itching or other Musc Musculoskeletal: No abnormal walking, joint pain, back pain, deformity, joint swelling, limited range of motion, loss of height, muscle cramps, muscle weakness, decreased muscle mass, body aches, neck pain, numbness, radiating pain into limb, stiffness, tingling or other Skin Skin: No acne, hair loss, change in hair, nail changes, boil, change in skin color, dry skin, redness, excessive hair growth, yellowing of the skin, lesions, itching, rash, skin pain, skin ulcer, sores, skin swelling, wounds or other Breast Breast: No other Neuro Neurology: No frequent falls, weakness, visual disturbances, abnormal hearing, headache(s), abnormal walking, numbness or tingling Psych Psychiatric: No abnormal sleep pattern, No change in appetite Endo Endocrine: No fatigue, other or excessive sweating Aller/Imm Allergy/Immunologic: Positive for wheezing; no lip swelling, tongue swelling, throat swelling or itchy eyes Assessment AND Plan Problems 1. Controlled diabetes mellitus type 1 without complications E10.9 Plan Is here today tomonitor BG due to prednisone related to asthma attack. Using auto mode her pump was able to keep Bg in mid 200 range for first 24 hours, then back into fairly normal rage. Did note she had low BG when using her correction for high BG. Actie insulin noted to be set at 2:15. Changed to 3 hours. Has appointment in about 1 week. Will see if this alleviates low G associated with corrective measures. Labs due. Will order for next appointment. Orders Orders: Plan Detail Additional Comments 1. Please schedule follow up in 3 months. 2. Lab work one week before appointment. 3. Discussed importance of regular exercise and recommend starting or continuing a regular exercise program for good health. 4. The patient was encouraged to lose weight for good health 5. The importance of monitoring blood sugar regularly was reviewed. 6. The importance of monitoring the HBA1c level regularly was reviewed. 7. The importance of prper foot care and regularly checking feet to prevent sores and loss of limbs was reviewed. 8. The importance of keeping BP at or below 130/80 to prevent stroke, heart attacks, kidney failure, blindness was reviewed. Spent approximately 30 minutes with patient with over 50% of time spent in discussion and counseling regarding medication adjustment, symptoms and treatment of hypoglycemia, diet adherence, and checking BG before driving. Coding Level of Care Code Off vis,est,level 3 Diagnoses Controlled diabetes mellitus type 1 without complications E10.9 Diabetes mellitus type: type 1 01/05/18 1422 <Electronically signed by Shaina SCHULTZ> Date Shaina SCHULTZ Cosigner Signature: Date (if applicable) CC: CHEST PA AND LATERAL Observed: 01/03/2018 Status: F Source: [facility] 2:02 PM [facility] REPOSITORY Final Report Accession No: [id number] Performed: Jan 03 2018 2:02PM Examination: CHEST PA AND LATERAL EXAM: CHEST PA AND LATERAL CLINICAL HISTORY: 22-year-old female presenting with asthma attack. TECHNIQUE: 2 view chest x-ray. COMPARISON: None. FINDINGS: No pneumothorax, pleural effusion or focal airspace consolidation. There is perihilar peribronchial thickening. Heart is normal in size. Bony thorax is unremarkable. IMPRESSION: 1. No focal airspace consolidation. 2. Mild peribronchial thickening. Findings may relate to reactive airway disease. Interpreting Physician: KISHORE BUTCHER D.O. Trans: mad : cc: CBC WITH DIFF Collected: 01/03/2018 Status: F Source: [facility] 1:37 PM [facility] REPOSITORY TYPE CODE TESTS RESULT OUT OF RANGE REFERENCE UNITS LAB WBC 3.4-10.6 K/mcL WBC Normal 6.4 LAB RBC 3.7-5.0 M/mcL RBC Normal 4.85 LAB HGB 11.6-15.4 g/dL Normal Hemoglobin 14.1 LAB HCT 34.4-44.8 % Normal Hematocrit 41.4 LAB MCV 82.6-98.9 FL MCV Normal 85.4 LAB MCH 27.9-33.9 pg MCH Normal 29.1 LAB MCHC 33.1-35.1 g/dL MCHC Normal 34.1 LAB RDW 10.0-14.4 % RDW Normal 12.2 LAB PLT 162-402 K/mcL Platelet Normal Count 289 LAB MPV 7.0-10.6 FL MPV Normal 8.9 LAB NEUT# 1.2-6.9 K/mcL Normal Neutrophil # 4.8 LAB LYMPH# 1.0-3.7 K/mcL Normal Lymphocyte # 1.0 LAB MONO# 0.1-0.6 K/mcL Monocyte Normal # 0.5 LAB EOS# 0-0.5 K/mcL Normal Eosinophil # 0.0 LAB BASO# 0-0.2 K/mcL Basophil Normal # 0.0 LAB SEGNEU% % Normal Segmented Neut % 75.5 LAB LYMP% % Normal Lymphocyte% 15.9 LAB MO% % Monocyte Normal % 7.6 LAB EO% % Normal Eosinophil % 0.4 LAB BA% % Basophil Normal % 0.6 Performed By: #### CHEM8, CBCDIF #### Unless otherwise noted, all testing performed by [place] [address] [address], [place] [address] CLIA: [id number] Single Needle Operator: Dayron Bird M.D. BASIC METABOLIC PANEL Collected: 01/03/2018 Status: F Source: [facility] 1:37 PM [facility] REPOSITORY TYPE CODE TESTS RESULT OUT OF REFERENCE UNITS RANGE LAB GLU 70-99 mg/dL High Glucose 246 Result Comment: This test result might be falsely depressed or falsely elevated on samples drawn from patients taking Sulfasalazine and Sulfapyridine. Venipuncture should occur prior to taking either of these drugs. LAB BUN 8-25 mg/dL BUN 11 LAB CREA 0.40-1.10 mg/dL Creatinine 1.00 LAB eGFR ml/min/1.73sq .m eGFR,NonAfrican-Am erican >=60 Result Comment: Non- GFR Calc eGFR is an estimated Glomerular Filtration Rate based on the value of the patient's serum creatinine. In outpatients, eGFR should be used as a helpful tool in screening for CKD. In inpatients or patients with acute renal failure, eGFR represents the GFR at the moment of the draw and should be used with caution. LAB eGFRB ml/min/1.73sq.m eGFR, -Citizen Of [place] >=60 Result Comment: GFR Calc LAB CALCM 8.4-10.2 mg/dL Calcium 8.4 LAB NA 135-145 mmol/L Sodium 136 LAB K 3.5-5.1 mmol/L Low Potassium 3.2 LAB CL 98-108 mmol/L Chloride 103 LAB CO2 21-32 mmol/L CO2 22 Performed By: #### CHEM8, CBCDIF #### Unless otherwise noted, all testing performed by [address] [address] CLIA: [id number] Single Needle Operator: Dayron Bird M.D. ENDOCRINOLOGY VISIT Observed: 10/08/2017 Status: F Source: [facility] 10:53 AM [facility] [place] [facility] [address] [place] [address]. [address] [place] [address] OFFICE VISIT Date of Service: 09/23/17 MR#: [id number] Acct: [id number] Name: VANNESA MENDESCICI POZO Rep #: [id number] : 1995 Provider: Shaina Marr NP Age/Sex: 22/F Location: [facility] Status: Signed HPI History of present illness Cici Ceballos is a 22 year old femal who presents for diabetes type 1. Diagnosed at age 1. Continues on insulin pump therapy. . Changes infusion site every 3 days. Denies any issues with skin irritation or infection. Reports checking BG consistently Time of Day Basal Rate 12m 0.7 6am 0.8 2p 0.9 4p 0.95 9p 1.0 i/c 12m 8 11am 9.5 5p 11 ISF 12m 110 6am 90 Time of Day Basal Rate 2pm 80 5pm 90 9pm 100 At time of visit: -Pt denies symptoms of hypertensive emergency (CP,SOB,MOTA, or blurred vision) and hypotension(dizziness or lightheadedness) -Pt denies symptoms of hypoglycemia ( sweaty, confusion, anxiety, tremor, hunger, palpitations) and hyperglycemia ( polydipsia, polyuria) -Pt denies potential medication adverse effect. Hypoglycemia Aware of hypoglycemia: When awake Able to self treat low BG: Yes Frequent low Blood sugar: No Has supply of glucagon: Yes Has disability dog Since our last visit he denies excessive thirst, increased frequency of urination, chest pain or dyspnea. Follows a diabetic diet, Is compliant with medication and is tolerating without side effects. Diet 3 meals Carb counts SMBG Has sensor Checks BG continously and manually as well Type: type 1, insulin-requiring Weight and fatigue symptoms: Denies snoring Cardiopulmonary symptoms: Denies chest pain at rest, dyspnea on exertion, lightheadedness or myalgias GI symptoms: Denies constipation, diarrhea, nausea/dyspepsia or vomiting Skin and extremity symptoms: Denies tingling/numbness/burning Other symptoms: Denies blurry vision or change in vision Pertinent visit history: Denies recent visit to ER or recent DKA Self monitoring: Yes Dietary compliance: Diabetes: good Diabetes education in past year: Yes Glucose testing: demonstrates correct use of meter Sick day education - understands ketone testing: Yes Physical activity: regular Exam Const General: comfortable, well groomed Nutritional Appearance: well nourished Orientation: oriented x3 HENMT Head: normal to inspection, normocephalic Ears: hearing grossly normal bilaterally Nose: external nose normal Face and sinus: normal facial exam Mouth: oral mucosae normal, moist mucous membranes Teeth and gingiva: dentition normal Eyes Conjunctivae: conjunctivae normal Sclera: sclerae normal Pupils: PERRL Neck Neck: normal visual inspection, full ROM, no lymphadenopathy Neck mass: No Thyroid: thyroid normal Resp Effort AND Inspection: normal respiratory effort, able to speak in complete sentences, symmetric chest movement Auscultation: Bilateral: Clear to Auscultation Cardio Rate: regular rate Rhythm: regular rhythm Heart Sounds: S1 normal, S2 normal, no murmurs, no rubs GI Inspection: normal to inspection Auscultation: normal bowel sounds Palpation: soft Skin General: no rashes or lesions noted Wounds: no wounds Diabetic Foot Pulses: L dorsalis pedis pulse: normal, R dorsalis pedis pulse: normal Monofilament test: Left foot: normal, Right foot: normal Neuro General: oriented x3, CN's II-XI intact bilaterally Cognition: normal cognition Speech: speech normal Gait: normal gait Motor: muscle tone normal throughout Extrem General: normal to inspection, full ROM, normal capillary refill Psych Appearance: grossly normal, well kempt Mood: congruent mood Affect: normal affect Speech and Movement: speech and movement normal Attitude: cooperative Thought Process: normal Thought Content: normal Judgment: judgment good Intake Vital Signs09/23/17 Height 5 ft 4 in 09/23/17 Weight: 144 lb 6 oz 09/23/17 Body Mass Index (BMI) 24.7 09/23/17 Blood Pressure 101/71 09/23/17 Blood Pressure Location Lt popliteal 09/23/17 Blood Pressure Position Sitting Intake Visit Reasons: Diabetes 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 Accompanied by: Self Is patient in pain?: No Allergies pineapple Allergy (Unknown, Verified 09/23/17 16:19) Unknown Medications albuterol sulfate HFA 90 mcg/actuation aerosol inhaler 2 puff INHALATION Q4H PRN 09/20/17 [History Confirmed 09/23/17] beclomethasone dipropionate 80 mcg/actuation aerosol inhaler 1 puff INHALATION BID 09/20/17 [History Confirmed 09/23/17] cholecalciferol (vitamin D3) 2,000 unit capsule 2,000 unit PO QDAY 09/20/17 [History Confirmed 09/23/17] citalopram 20 mg tablet 20 mg PO QDAY 09/20/17 [History Confirmed 09/23/17] drospirenone-ethinyl estradiol 3 mg-0.02 mg (24) tablet 1 tab PO QDAY 09/20/17 [History Confirmed 09/23/17] glucagon (human recombinant) 1 mg injection kit 1 mg IM ONCE 09/20/17 [History Confirmed 09/23/17] insulin aspart U-100 100 unit/mL subcutaneous solution 5 unit SC QDAY 09/20/17 [History Confirmed 09/23/17] Is last menstrual period known: No Post menopausal: No Patient : No Nurse's Note: blood sugars : low : <40 high : 250 PFSH Medical History Anxiety and depression (Acute) Asthma (Acute) Back problem (Acute) Chronic headaches (Acute) Congenital ptosis (Acute) Diabetes type 1, controlled (Acute) Heart murmur (Acute) Hives (Acute) Seasonal allergies (Acute) Vitamin D deficiency (Acute) Surgical History H/O eye surgery (Acute) Family History Grandfather Arthritis Cancer Grandmother Arthritis Diabetes Father High cholesterol Kidney disease Social History Smoking Status: Never smoker second hand exposure: No alcohol intake: current substance use type: does not use ROS Const Constitutional: No anorexia, body ache, chills, fatigue, fever(s), frequent falls, decreased energy, malaise, night sweats, weakness, weight change, sleep problems, abnormal sleep pattern, change in appetite, other, headache(s), snoring or excessive sweating Eyes Eyes: No blurry vision, change in vision, double vision, discharge, dry eyes, bulging eyes, floaters, visual disturbances, eye pain, light sensitivity, spots in vision, tunnel vision or other ENT ENT: Positive for nasal congestion and nasal discharge; no abnormal hearing, ear pain, ear discharge, ear pressure, hearing loss, tinnitus, dizziness/vertigo, balance problems, nosebleed/epistaxis, nasal obstruction, nose pain, sinus pressure, sinus pain, post nasal drip, headache(s), facial pain, dental pain, dry mouth, bad breath, hoarseness, lip swelling, mouth lesions, mouth pain, sore throat, tongue swelling, throat swelling, other, difficulty swallowing or neck pain Resp Respiratory: Positive for wheezing; no cough, change in phlegm color, chest congestion, excessive phlegm production, hemoptysis, pain on inspiration, shortness of breath, pain with cough, snoring, stridor or other Cardio Cardiology: No chest pain at rest, chest pain with exertion, leg pain with exertion, excessive sweating, shortness of breath, dyspnea on exertion, generalized swelling, irregular heart rhythm, lightheadedness, orthopnea, radiating jaw, neck or arm pain, fast heart rate, slow heart rate, palpitations or other Gastro GI: No abdominal pain, belching, bloating, change in bowel habits, change in stool character, coffee ground emesis, constipation, cramping, diarrhea, heartburn, difficulty swallowing, feeling full early, excessive flatus, incontinent of stools, Vomiting blood/hematemesis, blood in stool, loose stools, Black,tarry stools, nausea/dyspepsia, pain with swallowing, vomiting or other Genitourinary-Female: No difficulty urinating, burning urination, painful urination, urinary incontinence, urinary frequency, urinary urgency, urinary hesitancy, urinary retention, blood in urine, Frequent nighttime urination/ nocturia, post void dribbling, suprapubic fullness, side pain, sexual problems, genital lesions, genital itching, hot flashes, abnormal periods, abnormal vaginal bleeding, absent period, painful periods, light periods, heavy periods, difficulty getting , painful intercourse, pelvic pain, vaginal dryness, vaginal odor, Vaginal Itching or other Musc Musculoskeletal: No abnormal walking, joint pain, back pain, deformity, joint swelling, limited range of motion, loss of height, muscle cramps, muscle weakness, decreased muscle mass, body aches, neck pain, numbness, radiating pain into limb, stiffness, tingling or other Skin Skin: Positive for rash, sores and wounds; no acne, hair loss, change in hair, nail changes, boil, change in skin color, dry skin, redness, excessive hair growth, yellowing of the skin, lesions, itching, skin pain, skin ulcer, skin swelling or other Breast Breast: No other Neuro Neurology: No frequent falls, weakness, visual disturbances, abnormal hearing, headache(s), abnormal walking, numbness or tingling Psych Psychiatric: No abnormal sleep pattern, No change in appetite Endo Endocrine: No fatigue, other or excessive sweating Aller/Imm Allergy/Immunologic: Positive for wheezing; no lip swelling, tongue swelling, throat swelling or itchy eyes Assessment AND Plan 1. Type 1 diabetes mellitus without complication E10.9 Plan Continue current regimen. Plan Detail Additional Comments 1. Please schedule follow up in 3 months. 2. Lab work one week before appointment. 3. Discussed importance of regular exercise and recommend starting or continuing a regular exercise program for good health. 4. The patient was encouraged to lose weight for good health 5. The importance of monitoring blood sugar regularly was reviewed. 6. The importance of monitoring the HBA1c level regularly was reviewed. 7. The importance of prper foot care and regularly checking feet to prevent sores and loss of limbs was reviewed. 8. The importance of keeping BP at or below 130/80 to prevent stroke, heart attacks, kidney failure, blindness was reviewed. Spent approximately 30 minutes with patient with over 50% of time spent in discussion and counseling regarding medication adjustment, symptoms and treatment of hypoglycemia, diet adherence, and checking BG before driving. Coding Level of Care Code Off vis,est,level 4 Diagnoses Type 1 diabetes mellitus without complication E10.9 Diabetes mellitus type: type 1 Diabetes mellitus complication status: without complication Time Spent (min) 30 10/08/17 1053 <Electronically signed by Shaina SCHULTZ> Date Shaina SCHULTZ Cosigner Signature: Date (if applicable) CC: MICROALB:CREAT Collected: 09/14/2017 Status: F Source: [facility] RAT[facility] UR 3:57 PM [facility] [place] Order Comment: Order Date: 12/17/16 Order Info: [id number] - *Microalbumin, Creatine Ratio, rand urine Comments: Reason: TYPE CODE TESTS RESULT OUT OF RANGE REFERENCE UNITS LAB L501.1200 NO RANGE EST. mg/dL Normal UR CREAT 259.00 LAB L502.0500 NO RANGE EST. mg/L Normal 25.9 MICROALBUMIN ,UR LAB L502.0600 <30 mg/g CRE mg/g CRE Normal 10.0 MALB:CREAT Performed By: #### L502.0250 #### [facility] Andreia [place]án[place], [address] COMPREHENSIVE METABOLIC Collected: 09/14/2017 Status: F Source: [facility] [place] 3:05 PM [facility] [place] [facility] Order Comment: Order Date: 03/16/17 Order Info: [id number] - *CMP Complete Metabolic Panel TYPE CODE TESTS RESULT OUT OF RANGE REFERENCE UNITS LAB L501.0100 74-106 mg/dL High GLU 188 Result Comment: Fasting Glucose result greater than or equal to 126 mg/dL suggests DIABETES MELLITUS per A.D.A. criteria. Please note revised GLUCOSE reference range effective 2017. LAB L501.1000 7-18 mg/dL High BUN 19 LAB L501.1100 0.55-1.02 mg/dL Normal CREAT,SERUM 0.94 Result Comment: The validity of the calculated GFR AND GFRAA in patients over 70 years has not been determined. Clinical correlation is essential. LAB L501.1110 >60 mL/min Normal EST GFR 78 Result Comment: Non- GFR Calc LAB L501.1115 >60 mL/min Normal EST GFR - AA 94 Result Comment: GFR Calc LAB L501.1300 10-20 RATIO High BUN/CRE 20.3 LAB L501.1500 6.4-8.2 g/dL T Normal PROT 7.6 LAB L501.1800 3.2-5.0 g/dL Normal ALB 3.5 LAB L501.1950 2.2-4.2 g/dL Normal GLOB 4.1 LAB L501.2000 0.9-2.4 RATIO Normal A/G 0.9 LAB L501.2200 8.5-10.1 mg/dL CA Normal 9.0 LAB L501.4100 15-37 U/L Low AST 13 LAB L501.4305 45-117 U/L Normal ALK P 53 LAB L501.4405 13-56 U/L Normal ALT 16 LAB L501.4600 0.20-1.00 mg/dL T Normal BILI 0.40 LAB L501.5300 136-145 mmol/L NA Normal 138 LAB L501.5600 3.5-5.1 mmol/L K Normal 4.1 LAB L501.5900 98-107 mmol/L CL Normal 103 LAB L501.6100 21.0-32.0 mmol/L Normal CO2 29.0 LAB L501.6200 5-15 Normal GAP 6 Performed By: #### L500.4050 #### [facility] [address] [place], [address] HEMOGLOBIN A1C Collected: 09/14/2017 Status: F Source: [facility] 3:05 PM [facility] [place] [facility] Order Comment: Order Date: 03/16/17 Order Info: [id number] - *HgA1C TYPE CODE TESTS RESULT OUT OF RANGE REFERENCE UNITS LAB L501.9985 4.2-6.3 % High HGB A1C 7.4 Performed By: #### L501.9985 #### [facility] [address], [address] ALLERGIES ALLERGIES DATE TYPE / CODE NAME / CODE REACTION SEVERITY SOURCE 06/06/2018 Drug pineapple/F0 Unknown Unknown [facility] Allergy/4160 [id number]([facility] [address](SNOMED ORM) Repository CT) ENCOUNTERS ENCOUNTERS ADMIT/DISCHARGE ACCOUNT NUMBER ADMITTING ENCOUNTER LOCATION SOURCE CLASS 06/06/2018/06/06/19 [id number] Ambulatory [facility] Repository 05/02/2018 [id number] Ambulatory [facility] ding:LAB Repository 05/02/2018/05/02/20 [id number] Ambulatory [facility]: [facility] Repository 01/31/2018/02/01/20 [id number] Ambulatory [facility]: [facility] Repository 01/11/2018/01/12/20 [id number] Ambulatory [facility]: [facility] Repository 01/06/2018 [id number] Ambulatory [facility] ding:LABSPEC Repository 01/05/2018/01/06/20 [id number] Ambulatory [facility]: [facility] Repository 01/03/2018/08/[id number] [facility] [place] [address] Emery RainesBobo ing:[address] [facility] [address] W5NKTot: Repository A1E [id number] 09/23/2017/09/24/19 [id number] Ambulatory [facility]: [facility] Repository 09/20/2017 [id number] Ambulatory [facility]: [facility] Repository 09/14/2017 [id number] Ambulatory [facility] ding:LAB Repository PAYERS PAYERS ENCOUNTER GUARANTOR PAYER SUBSCRIBER SOURCE 06/06/2018 CICI GRANADO Primary MONCHO F [place] [id number] Insurance:MEDICAL LEEDOB: [address] Number: Repository [id number]: 330 [id number] [phone] () Date:[id number] [address]MB: 06/06/2018 Secondary NOT GIVENUNK [place] Insurance:SELF PAY [facility] Number: Effective Repository Date:2018-06-06 05/02/2018 CICI GRANADO Primary MONCHO Andres [id number] Insurance:MEDICAL LEEDOB: [address] Number: Repository [id number]: 330 [id number] [phone] () Date:[id number] [address]BW: 05/02/2018 Secondary NOT GIVENUNK [place] Insurance:SELF PAY [facility] Number: Effective Repository Date:2018-05-02 05/02/2018 CICI GRANADO Primary MONCHO Andres [id number] Insurance:MEDICAL LEEB: [address] Number: Repository [id number]: 330 [id number] [phone] (HP) Date:[id number] [address] [place] [address]CZ: 05/02/2018 Secondary NOT GIVENUNK [place] Insurance:SELF PAY [facility] Number: Effective Repository Date:2018-05-02 01/31/2018 CICI GRANADO Primary Moncho LeeDOB: [place] [id number] Insurance:MEDICAL [id number] [place] Number: Repository [id number]: 330 [id number] [phone] (HP) Date:[id number] [address] [address]VA: 01/31/2018 Secondary NOT GIVENUNK [place] Insurance:SELF PAY [facility] Number: Effective Repository Date:2018-01-31 01/11/2018 CICI GRNAADO Primary Moncho LeeDOB: [facility] [id number] Insurance:MEDICAL [id number] [place], [place] Number: Repository [id number]: 330 [id number] [phone] (HP) Date:[id number] [address] [address]KH: 01/11/2018 Secondary NOT GIVENUNK [place] Insurance:SELF PAY [facility] Number: Effective Repository Date:2018-01-11 01/06/2018 Cici Granado2910 Primary Moncho LeeDOB: [place] [employer] Insurance:MEDICAL [id number] [address]Goe: 330) Number: Repository [phone] () [id number] Date:[id number] [address] [address]NL: 01/06/2018 Secondary NOT GIVENUNK [place] Insurance:SELF PAY [facility] Number: Effective Repository Date:2018-01-06 01/05/2018 CICI GRANADO Primary Moncho LeeDOB: [facility] [id number] Insurance:MEDICAL [id number] [place], [place] Number: Repository [id number]: [phone] [id number] [phone] (HP) Date:[id number] [address] [place] [address]QQ: 01/05/2018 Secondary NOT GIVENUNK [place] Insurance:SELF PAY [facility] Number: Effective Repository Date:2018-01-05 01/03/2018 Primary MONCHO F [facility] Insurance:Medical LEEDOB: [facility] [id number] [place] [address] Number: 0 [facility] Repository [id number] [place] Date:Plan Name:Health [address]Bab: (HP) 09/23/2017 CICI GRANADO Primary Moncho LeeDOB: [place] [id number] Insurance:MEDICAL [id number] [place], [place] Number: Repository [id number]: [phone] [id number] [phone] (HP) Date:8005-06-53WP [address] [place] [id number]: 09/23/2017 Secondary NOT GIVENUNK Mckenna Insurance:SELF PAY [facility] Number: Effective Repository Date:2017-09-23 09/20/2017 CICI GRANADO Primary Moncho LeeDOB: Donalds [id number] Insurance:MEDICAL [id number] [place] Number: Repository [id number]: [phone] [id number] [phone] (HP) Date:0709-18-79MR [address] [place] [phone]: 09/20/2017 Secondary NOT GIVENUNK Donalds Insurance:SELF PAY [facility] Number: Effective Repository Date:2017-09-20 09/14/2017 CICI GRANADO Primary Moncho LeeDOB: Donalds [id number] Insurance:MEDICAL [id number] [place] Number: Repository [id number]: [phone] [id number] [phone] () Date:9711-54-09IA [address], [place] [address]YW: 09/14/2017 Secondary NOT GIVENUNK Mckenna Insurance:SELF PAY [facility] Number: Effective Repository Date:2017-09-14
== END ==
PROVIDERS: Family Provider Internal Medicine; PCP Internal Medicine; Referring Provider Nurse Practitioner; Visit Provider Nurse Practitioner
DX: E10.9 Type 1 diabetes mellitus without complications (principal)
CPT/HCPCS: 36415; 80053; 83036; 84443

== ENCOUNTER → 2018-07-27 12:04 | Outpatient (CLI) | payer OTHER, SELFPAY ==
[2018-07-27 11:19] VITALS: BMI 24.9
[2018-07-27 13:09] LABS: Hemoglobin A1c 6.7 % (4.2-6.3)
[2018-07-27 13:25] LABS: ALB/GLOB Ratio 0.9 RATIO (0.9-2.4); AST(SGOT) 16 U/L (15-37); Alanine Aminotransfer ALT/SGPT 25 U/L (13-56); Albumin, Serum 3.5 g/dL (3.2-5.0); Alkaline Phosphatase 66 U/L (45-117); Anion Gap 5 (5-15); BUN 17 mg/dL (7-18); BUN/Creat Ratio 19.5 RATIO (10-20); Calcium,Total 8.9 mg/dL (8.5-10.1); Chloride 103 mmol/L (98-107); Cholesterol 152 mg/dL (200); Creatinine, Serum 0.87 mg/dL (0.55-1.02); EST Glomerular Filtration Rate 84 mL/min (>60); Est Glom Filt Rate - Afr Amer 102 mL/min (>60); Globulin 3.7 g/dL (2.2-4.2); Glucose 243 mg/dL (74-106); High Density Lipoprotein 66 mg/dL; Potassium 4.3 mmol/L (3.5-5.1); Protein, Total 7.2 g/dL (6.4-8.2); Sodium Level 138 mmol/L (136-145); Triglycerides 43 mg/dL; Very Low Density Lipoprotein 9 mg/dL (5-40)
== END ==
PROVIDERS: Family Provider Internal Medicine; PCP Internal Medicine; Referring Provider Nurse Practitioner; Visit Provider Nurse Practitioner
DX: E10.9 Type 1 diabetes mellitus without complications (principal)
CPT/HCPCS: 36415; 80053; 80061; 83036

== ENCOUNTER → 2018-10-31 15:39 | Outpatient (CLI) | payer OTHER, SELFPAY ==
[2018-10-31 18:05] LABS: Progesterone Level 0.56 ng/mL (See Comment); Prolactin 14.2 ng/mL; Thyroid Stim Hormone (TSH) 1.58 uIU/mL (0.358-3.74)
== END ==
PROVIDERS: Visit Provider Obstetrics & Gynecology
DX: N92.6 Irregular menstruation, unspecified (principal)
CPT/HCPCS: 36415; 84144; 84146; 84443

== ENCOUNTER → 2018-12-15 09:53 | Outpatient (CLI) | payer OTHER, SELFPAY ==
[2018-07-27 11:19] VITALS: BMI 24.9
[2018-12-15 12:46] LABS: Progesterone Level 0.24 ng/mL (See Comment)
== END ==
PROVIDERS: Family Provider Internal Medicine; PCP Internal Medicine; Visit Provider Obstetrics & Gynecology
DX: N97.0 Female infertility associated with anovulation (principal)
CPT/HCPCS: 36415; 84144

== ENCOUNTER → 2019-01-23 11:47 | Outpatient (CLI) | payer OTHER, SELFPAY ==
[2018-07-27 11:19] VITALS: BMI 24.9
[2019-01-23 13:07] LABS: Progesterone Level 15.39 ng/mL (See Comment)
== END ==
PROVIDERS: Visit Provider Obstetrics & Gynecology
DX: N97.0 Female infertility associated with anovulation (principal)
CPT/HCPCS: 36415; 84144

== ENCOUNTER → 2019-02-18 11:37 | Outpatient (CLI) | payer OTHER, SELFPAY ==
[2018-07-27 11:19] VITALS: BMI 24.9
[2019-02-20 09:19] LABS: Progesterone Level 17.88 ng/mL (See Comment)
== END ==
PROVIDERS: Family Provider Internal Medicine; PCP Internal Medicine; Referring Provider Obstetrics & Gynecology; Visit Provider Obstetrics & Gynecology
DX: N97.0 Female infertility associated with anovulation (principal)
CPT/HCPCS: 36415; 84144

== ENCOUNTER → 2019-03-21 18:15 | Outpatient (CLI) | payer OTHER, SELFPAY ==
[2018-07-27 11:19] VITALS: BMI 24.9
[2019-03-21 20:46] LABS: Progesterone Level 0.92 ng/mL (See Comment)
== END ==
PROVIDERS: Family Provider Internal Medicine; PCP Internal Medicine; Visit Provider Obstetrics & Gynecology
DX: N97.0 Female infertility associated with anovulation (principal)
CPT/HCPCS: 84144

== ENCOUNTER → 2019-03-23 17:33 | Outpatient (CLI) | payer OTHER, SELFPAY ==
[2018-07-27 11:19] VITALS: BMI 24.9
[2019-03-23 19:15] LABS: Progesterone Level 3.47 ng/mL (See Comment)
== END ==
PROVIDERS: Family Provider Internal Medicine; PCP Internal Medicine; Visit Provider Obstetrics & Gynecology
DX: N97.0 Female infertility associated with anovulation (principal)
CPT/HCPCS: 36415; 84144

== ENCOUNTER → 2019-04-25 17:55 | Outpatient (CLI) | payer OTHER, SELFPAY ==
[2018-07-27 11:19] VITALS: BMI 24.9
[2019-04-25 19:08] LABS: Progesterone Level 5.89 ng/mL (See Comment)
== END ==
PROVIDERS: Family Provider Internal Medicine; PCP Internal Medicine; Referring Provider Obstetrics & Gynecology; Visit Provider Obstetrics & Gynecology
DX: N97.0 Female infertility associated with anovulation (principal)
CPT/HCPCS: 36415; 84144

== ENCOUNTER → 2020-10-03 15:31 | Outpatient (CLI) | payer OTHER, SELFPAY ==
[2020-09-05 14:23] VITALS: BMI 25.2
[2020-10-03 17:08] LABS: Color, Urine Yellow (Yellow); Glucose, Dipstick 1000 mg/dl (Normal); Ketone-Dipstick 5 mg/dl (Negative); Leukocyte Esterase-Dipstick 25 /ul (Negative); Nitrite-Dipstick Negative (Negative); Occult Blood-Urine 10 /ul (Negative); Protein-Dipstick 30 mg/dl (Negative); Specific Gravity, Urine 1.025 (1.002-1.030); Urine Bilirubin Dipstick Negative (Negative); Urine Clarity Sl. Cloudy (Clear); Urine Urobilinogen Normal (Normal)
[2020-10-03 17:19] LABS: Absolute Lymphocyte Count 1.05 X10^3/uL (0.83-4.51); Absolute Neutrophil Count 9.4 X10^3/uL (2.0-7.7); Basophil# 0.08 X10^3/uL; Basophil% 0.7 % (0-1); Eosinophil# 0.18 X10^3/uL; Eosinophils% 1.6 % (0-5); Hematocrit 40.1 % (37-47); Hemoglobin 13.5 g/dL (12.0-15.0); Lymphocyte # 1.05 X10^3/ul (0.83-4.51); Lymphocyte % 9.1 % (19-41); Mean Corp Hgb Conc 33.7 g/dL (32-36); Mean Corpuscular Hgb 29.1 pg (27.0-32.0); Mean Corpuscular Volume 86.4 fL (81-99); Mean Platelet Vol. 11.7 fl (6.2-12.0); Monocyte# 0.82 X10^3/uL; Monocyte% 7.1 % (0-10); NRBC Flagged by Analyzer 0 % (0-5); Neutrophil # 9.38 X10^3/uL (2.7-7.7); Platelet Count 372 K/mm3 (150-450); RBC Distribution Width CV 13.1 % (11.6-14.6); RBC Distribution Width SD 41.1 fl (35.1-43.9); Red Blood Count 4.64 M/mm3 (4.2-5.4); White Blood Count 11.6 K/mm3 (4.4-11.0)
[2020-10-03 17:49] LABS: Thyroid Stim Hormone (TSH) 2.04 uIU/mL (0.358-3.74)
[2020-10-03 17:58] LABS: Amphetamine Urine VISTA NEGATIVE (<1000 ng/mL); Barbiturate Urine VISTA NEGATIVE (< 200 ng/mL); Benzodiazepine Urine VISTA NEGATIVE (< 200 ng/mL); Cocaine Urine VISTA NEGATIVE (< 300 ng/mL); Ecstacy Urine VISTA NEGATIVE (< 500 ng/mL); Methadone Urine VISTA NEGATIVE (< 300 ng/mL); PCP Urine VISTA NEGATIVE (< 25 ng/mL); THC Urine VISTA NEGATIVE (< 50 ng/mL); Vista UDS pH Range 5
[2020-10-04 11:13] LABS: HIV - WCH Non-Reactive (Nonreactive); Hepatitis B Surface Antigen Non-Reactive (Nonreactive); Hepatitis C Antibody Non-Reactive (Nonreactive); Rubella IgG Reactive (Nonreactive); Syphilis Antibodies Non-reactive
[2020-10-07 06:06] LABS: Chlamydia By Nucleic Acid AMP Negative (Negative)
[2020-10-07 07:37] LABS: Gonococcus By Nucleic Acid AMP Negative (Negative)
== END ==
PROVIDERS: PCP Internal Medicine; Visit Provider Obstetrics & Gynecology
DX: Z34.81 Encounter for supervision of other normal pregnancy, first trimester (principal)
CPT/HCPCS: 36415; 80307; 81002; 84443; 85025; 86703; 86762; 86780; 86803; 87340; 87491; 87591

== ENCOUNTER → 2020-11-05 09:46 | Outpatient (CLI) | payer OTHER, SELFPAY ==
[2020-09-05 14:23] VITALS: BMI 25.2
== END ==
PROVIDERS: PCP Internal Medicine; Visit Provider Student in an Organized Health Care Education/Training Program
DX: Z11.3 Encounter for screening for infections with a predominantly sexual mode of transmission (principal)

== ENCOUNTER → 2021-01-21 09:26 | Outpatient (CLI) | payer OTHER, SELFPAY ==
[2021-01-21 10:21] LABS: AST(SGOT) 30 U/L (15-37); Alanine Aminotransfer ALT/SGPT 33 U/L (13-56); Alkaline Phosphatase 105 U/L (45-117); Bilirubin, Direct 0.18 mg/dL (0.00-0.30); Globulin 4.1 g/dL (2.2-4.2); Protein, Total 6.1 g/dL (6.4-8.2)
== END ==
PROVIDERS: PCP Internal Medicine; Visit Provider Obstetrics & Gynecology
DX: O26.619 Liver and biliary tract disorders in pregnancy, unspecified trimester (principal); Z3A.00 Weeks of gestation of pregnancy not specified
CPT/HCPCS: 36415; 80076

== ENCOUNTER 2021-03-09 00:25 | Outpatient (CLI) | payer OTHER, SELFPAY ==
[2021-03-09 00:38] VITALS: TEMP 36
[2021-03-09 00:39] VITALS: BP 138/93; PULSE 86
[2021-03-09 00:56] VITALS: BP 134/88; PULSE 81
[2021-03-09 03:42] VITALS: BMI 29.8
[2021-03-09] MEDS: Lactated Ringers 1,000 ML 999 ML IV (04:15)
[2021-03-09 04:32] LABS: Absolute Lymphocyte Count 1.14 X10^3/uL (0.83-4.51); Absolute Neutrophil Count 7.6 X10^3/uL (2.0-7.7); Basophil# 0.05 X10^3/uL; Basophil% 0.5 % (0-1); Eosinophil# 0.02 X10^3/uL; Eosinophils% 0.2 % (0-5); Lymphocyte # 1.14 X10^3/ul (0.83-4.51); Lymphocyte % 11.7 % (19-41); Mean Corp Hgb Conc 32.3 g/dL (32-36); Mean Corpuscular Volume 80.7 fL (81-99); Mean Platelet Vol. 12.1 fl (6.2-12.0); Monocyte# 0.83 X10^3/uL; Monocyte% 8.5 % (0-10); NRBC Flagged by Analyzer 0 % (0-5); Neutrophil % 78.2 % (47-70); Platelet Count 283 K/mm3 (150-450); RBC Distribution Width CV 12.8 % (11.6-14.6); Red Blood Count 3.84 M/mm3 (4.2-5.4); White Blood Count 9.7 K/mm3 (4.4-11.0)
[2021-03-09 04:53] LABS: ROM Internal Control Test YES-OK TO RESULT pt. (Internal QC)
[2021-03-09 04:54] LABS: ROM Patient Test POSITIVE (Negative)
[2021-03-09] MEDS: Lactated Ringers 500 ML 999 ML IV (05:33)
[2021-03-09 06:03] LABS: Color, Urine Yellow (Yellow); Glucose, Dipstick Normal (Normal); Ketone-Dipstick Negative (Negative); Leukocyte Esterase-Dipstick Negative /ul (Negative); Mucous, Urine 0 SEEN /hpf (<or=2+); Nitrite-Dipstick Negative (Negative); Occult Blood-Urine 250 /ul (Negative); Protein-Dipstick 30 mg/dl (Negative); Squamous Epithelial Cells - UA 0 SEEN /hpf (5-10); Urine Bilirubin Dipstick Negative (Negative); Urine Clarity Clear (Clear); Urine Urobilinogen Normal (Normal); Urine pH 6.5 (5.0 - 8.0); White Blood Cells 0 SEEN /hpf (0-5)
[2021-03-09 06:15] LABS: Bacteria 2+ /hpf (None Seen); Red Blood Cells-Urine 5-10 SEEN /hpf (0-5)
[2021-03-09 06:49] LABS: Group B Strep DNA By PCR Negative (Negative); Internal Control PASS; Probe Check PASS; Specimen Processing Control PASS
[2021-03-09 08:43] VITALS: BP 129/80; PULSE 73; TEMP 37.5
--- NOTE | 2021-03-09 09:22 | OB.TRI.HP_ITS ---
HPI - General HPI Narrative ESTEBAN GONZALEZ, is a 25 F who presents at 32+ weeks gestation with some mild vaginal bleeding. Patient's care has been remarkable for type 1 diabetes well controlled and a placenta previa which was noted to have resolved on ultrasound last week. She indicates that she had a single episode of vaginal bleeding and at presentation had only mild irritability noted. Patient has noted good movement. She denies any precipitating events such as intercourse as a cause of her bleeding. [facility] Medical History (Updated 03/09/21 @ 09:[address] Marlo Fernandez MD) Anxiety and depression Asthma Back problem Chronic headaches Congenital ptosis Diabetes type 1, controlled Heart murmur Hives complicated by pre-existing type 1 diabetes in second trimester Seasonal allergies Vitamin D deficiency Home Medications albuterol sulfate 90 mcg/actuation aerosol inhaler 2 puff INHALATION Q4H PRN 09/20/17 [History Last Taken Unknown] beclomethasone dipropionate 80 mcg/actuation aerosol inhaler 1 puff INHALATION BID 09/20/17 [History Last Taken Unknown] cholecalciferol (vitamin D3) 50 mcg (2,000 unit) capsule 2,000 unit PO QDAY 09/20/17 [History Last Taken Unknown] citalopram 20 mg tablet 20 mg PO QDAY 09/20/17 [History Last Taken Unknown] glucagon 1 mg/0.2 mL subcutaneous auto-injector 1 mg SC ONCE #0.4 ml 04/30/20 [Rx Last Taken Unknown] Novolog U-100 Insulin aspart 100 unit/mL subcutaneous solution 60 unit SC QDAY #20 ml NS 09/05/20 [Rx Last Taken Unknown] empty container [facility] 09/05/20 [History Last Taken Unknown] leuprolide 1 mg/0.2 mL subcutaneous kit [facility] 09/05/20 [History Last Taken Unknown] needle (disp) 22 G 22 gauge x 1 1/2 #1000 each 09/05/20 [History Last Taken Unknown] progesterone micronized 200 mg capsule 200 mg VAGINAL DAILY cap 09/05/20 [History Last Taken Unknown] syringe (disposable) 1 mL #1000 each 09/05/20 [History Last Taken Unknown] aspirin 81 mg tablet,delayed release 81 mg PO DAILY 12/23/20 [History Last Taken Unknown] prenat.vits,fiona,mpi-yeee-kskyd 1 tab PO DAILY 12/23/20 [History Last Taken Unknown] blood-glucose sensor #12 ea 12/24/20 [Rx Last Taken Unknown] blood-glucose transmitter #1 ea 12/24/20 [Rx Last Taken Unknown] subcutaneous insulin pump #1 ea 12/24/20 [Rx Last Taken Unknown] Accu-Chek Guide test strips #200 ea NS 01/14/21 [Rx Last Taken Unknown] Allergy/AdvReac Type Severity Reaction Status Date / Time pineapple Allergy Unknown Unknown Verified 03/09/21 03:43 Family History Grandfather Arthritis Cancer Grandmother Arthritis Diabetes Father High cholesterol Kidney disease Surgical History H/O eye surgery Social History (Updated 09/07/20 @ 18:[address] Elijah Hickey MD) second hand exposure: No alcohol intake: current substance use type: does not use NST FHR Rate Baby A NST Reactive:: Yes FHR Category:: Category I Uterine Activity:: Minimal Assessment & Plan (1) Third trimester bleeding, antepartum: (2) labor in third trimester: PLAN: Transient labor and some mild bleeding from low lying placenta at 32+ weeks gestation. ROM test was positive however there is no gross leaking of fluid and specimen was bloody so this is most likely a false positive test. After extended monitoring there is no indicated arellano of rupture of membranes and heart tones remain reactive. IV fluid boluses has stopped contractions and cervix is closed thick and high with minimal blood noted in the vagina on exam. Given no contractions and virtually no bleeding with reactive nonstress test and extended monitoring, will release to home with routine instructions. Patient was instructed to return if any increased bleeding, decreased movement, or leaking of fluid. Nonstress test with likely ultrasound planned in the office tomorrow.
== END 2021-03-09 09:05 | disposition home or self-care (01) ==
LOC: WPOUT 00:30 → WP 00:31
PROVIDERS: PCP Internal Medicine; Visit Provider Obstetrics & Gynecology
DX: O46.93 Antepartum hemorrhage, unspecified, third trimester (principal); O24.913 Unspecified diabetes mellitus in pregnancy, third trimester; Z79.4 Long term (current) use of insulin; Z3A.32 32 weeks gestation of pregnancy
CPT/HCPCS: 96365; 96366 ×2; 36415; 59025; 59050; 81001; 84112; 85025; 87081; 87653; 99218; J7120; G0378

== ENCOUNTER 2021-03-09 22:55 | Outpatient (CLI) | payer OTHER, SELFPAY ==
[2021-03-09 23:22] VITALS: BP 159/93; PULSE 85; PULSE 86; TEMP 37.5; O2SAT 100
[2021-03-09 23:37] VITALS: BMI 30.4
[2021-03-09 23:38] VITALS: BP 145/91; PULSE 82
[2021-03-09 23:53] VITALS: BP 143/88; PULSE 85
[2021-03-10] VITALS (11 sets, daily range): BP systolic 139–166; BP diastolic 75–103; PULSE 84–97; TEMP 37.3; O2SAT 99
[2021-03-10] MEDS: Lactated Ringers 1,000 ML 999 ML IV (00:12)
[2021-03-10] MEDS: Betamethasone/Betamethasone 30 MG/5 ML Vial 12 MG IM (00:18)
[2021-03-10 00:21] LABS: Color, Urine Yellow (Yellow); Glucose, Dipstick Normal (Normal); Ketone-Dipstick 15 mg/dl (Negative); Leukocyte Esterase-Dipstick Negative /ul (Negative); Nitrite-Dipstick Negative (Negative); Occult Blood-Urine 250 /ul (Negative); Protein-Dipstick 30 mg/dl (Negative); Urine Bilirubin Dipstick Negative (Negative); Urine Clarity Clear (Clear); Urine Urobilinogen Normal (Normal)
[2021-03-10 00:22] LABS: Basophil# 0.06 X10^3/uL; Basophil% 0.6 % (0-1); Eosinophil# 0.06 X10^3/uL; Eosinophils% 0.6 % (0-5); Hematocrit 35.9 % (37-47); Hemoglobin 11.6 g/dL (12.0-15.0); Lymphocyte % 13.4 % (19-41); Mean Corp Hgb Conc 32.3 g/dL (32-36); Mean Corpuscular Hgb 26.1 pg (27.0-32.0); Mean Corpuscular Volume 80.7 fL (81-99); Mean Platelet Vol. 11.5 fl (6.2-12.0); Monocyte# 0.88 X10^3/uL; Monocyte% 8.4 % (0-10); NRBC Flagged by Analyzer 0 % (0-5); Neutrophil # 7.97 X10^3/uL (2.7-7.7); Platelet Count 319 K/mm3 (150-450); RBC Distribution Width CV 13.1 % (11.6-14.6); RBC Distribution Width SD 37.6 fl (35.1-43.9); Red Blood Count 4.45 M/mm3 (4.2-5.4); White Blood Count 10.5 K/mm3 (4.4-11.0)
[2021-03-10 00:30] LABS: Protein, Urine (Random) 44.7 mg/dL (<11.9); Protein:Creat Ratio 1393 mg/g CRE (0-200)
[2021-03-10 00:46] LABS: AST(SGOT) 35 U/L (15-37); Alanine Aminotransfer ALT/SGPT 22 U/L (13-56); Creatinine, Serum 1.39 mg/dL (0.55-1.02); EST Glomerular Filtration Rate 48 mL/min (>60); Est Glom Filt Rate - Afr Amer 58 mL/min (>60); Uric Acid 6.4 mg/dL (2.6-6.0)
[2021-03-10] MEDS: Lactated Ringers 1,000 ML 200 ML IV (01:13)
--- NOTE | 2021-03-10 01:59 | OB.TRI.HP_ITS ---
HPI - General HPI Narrative ESTEBAN GONZALEZ, is a 25 F who presents to labor and delivery with mild vaginal bleeding and contractions every 6 to 8 minutes. She presented with similar symptoms approximately 24 hours ago which were relieved with IV fluids. As the day went on today she began having more crampiness and this evening she woke up with some bleeding and strong contractions. care has been remarkable for type 1 diabetes well controlled with continuous glucose monitoring and insulin pump. She had placenta previa which was noted on ultrasound by MFM during the past week to have resolved; at that time the baby measured 4 pounds 15 ounces which was in the 69th percentile. Amniotic fluid index was also normal at that time. Bedside ultrasound this evening shows normal fluid in cephalic presentation. No evidence of abruption visualized in the placenta. Labs appropriate except uric acid is elevated to 6.4 and urine protein to creatinine ratio is 1393. Creatinine is 1.39. Patient reports recent insulin requirements have dropped. Upon presentation a single dose of Celestone was given and hydration with lactated Ringer's has eased contractions but the patient continues to have regular strong contractions. Maternal Data Information Final COMPA: 04/30/21 Final COMPA Source: [place] <20 weeks Gestational age: [address]w [address] [facility] Medical History (Updated 03/09/21 @ 09:[address] Marlo Fernandez MD) Anxiety and depression Asthma Back problem Chronic headaches Congenital ptosis Diabetes type 1, controlled Heart murmur Hives complicated by pre-existing type 1 diabetes in second trimester Seasonal allergies Vitamin D deficiency Home Medications albuterol sulfate 90 mcg/actuation aerosol inhaler 2 puff INHALATION Q4H PRN 09/20/17 [History Last Taken Unknown] beclomethasone dipropionate 80 mcg/actuation aerosol inhaler 1 puff INHALATION BID 09/20/17 [History Last Taken Unknown] citalopram 20 mg tablet 20 mg PO QDAY 09/20/17 [History Last Taken 03/09/21 22:00] glucagon 1 mg/0.2 mL subcutaneous auto-injector 1 mg SC ONCE #0.4 ml 04/30/20 [Rx Last Taken Unknown] Novolog U-100 Insulin aspart 100 unit/mL subcutaneous solution 60 unit SC QDAY #20 ml NS 09/05/20 [Rx Last Taken Unknown] empty container ea 09/05/20 [History Last Taken Unknown] leuprolide 1 mg/0.2 mL subcutaneous kit ea [facility] 09/05/20 [History Last Taken Unknown] needle (disp) 22 G 22 gauge x 1 1/2 #1000 each 09/05/20 [History Last Taken Unknown] syringe (disposable) 1 mL #1000 each 09/05/20 [History Last Taken Unknown] aspirin 81 mg tablet,delayed release 81 mg PO DAILY 12/23/20 [History Last Taken 03/08/21 21:00] prenat.vits,fiona,[id number]-[id number] 1 tab PO DAILY 12/23/20 [History Last Taken 03/09/21 21:00] blood-glucose sensor #12 ea 12/24/20 [Rx Last Taken Unknown] blood-glucose transmitter #1 ea 12/24/20 [Rx Last Taken Unknown] subcutaneous insulin pump #1 ea 12/24/20 [Rx Last Taken Unknown] Accu-Chek Guide test strips #200 ea NS 01/14/21 [Rx Last Taken Unknown] Allergy/AdvReac Type Severity Reaction Status Date / Time pineapple Allergy Unknown Unknown Verified 03/09/21 03:43 Family History Grandfather Arthritis Cancer Grandmother Arthritis Diabetes Father High cholesterol Kidney disease Surgical History H/O eye surgery Social History (Updated 09/07/20 @ 18:[address] Elijah Hickey MD) second hand exposure: No alcohol intake: current substance use type: does not use Physical Exam Narrative Uterus is nontender to palpation except when having contractions. No epigastric or right upper quadrant tenderness. Pelvic exam shows small amount of blood present in cervix closed, 25% effaced and high station. NST FHR Rate Baby A NST Reactive:: Yes FHR Category:: Category I Assessment & Plan (1) labor in third trimester: (2) Third trimester bleeding, antepartum: PLAN: Suspicious for early abruption at 32+ weeks gestation. Discussed with Dr. Flores at maternal- medicine who accepts patient in transport to [facility].
== END 2021-03-10 02:41 | disposition other institution (70) ==
LOC: WPOUT 23:03 → WP 23:03
PROVIDERS: PCP Internal Medicine; Visit Provider Obstetrics & Gynecology
DX: O46.93 Antepartum hemorrhage, unspecified, third trimester (principal); O60.03 Preterm labor without delivery, third trimester; Z3A.32 32 weeks gestation of pregnancy; O24.013 Pre-existing type 1 diabetes mellitus, in pregnancy, third trimester; O99.513 Diseases of the respiratory system complicating pregnancy, third trimester; O99.343 Other mental disorders complicating pregnancy, third trimester; J45.909 Unspecified asthma, uncomplicated; F41.9 Anxiety disorder, unspecified; F32.A Depression, unspecified; Z79.899 Other long term (current) drug therapy; Z79.4 Long term (current) use of insulin
CPT/HCPCS: 96360; 96361; 36415; 59025; 59050; 76815; 81001; 81002; 82565; 82570; 84112; 84156; 84450; 84460; 84550; 85025; 87081; 87086; 87088; 87653; 96372; 99218; J7120; G0378; J0702

== ENCOUNTER → 2021-10-24 | Outpatient (CLI) | payer OTHER, SELFPAY ==
[2021-10-24 13:51] LABS: Hematocrit 38.7 % (37-47)
[2021-10-24 14:01] LABS: Albumin, Serum 3.2 g/dL (3.2-5.0); BUN 20 mg/dL (7-18); Calcium,Total 8.8 mg/dL (8.5-10.1); Chloride 109 mmol/L (98-107); Creatinine, Serum 1.05 mg/dL (0.55-1.02); EST Glomerular Filtration Rate 66 mL/min (>60); Est Glom Filt Rate - Afr Amer 80 mL/min (>60); Glucose 114 mg/dL (74-106); Phosphorus 3.5 mg/dL (2.5-4.9); Potassium 4.1 mmol/L (3.5-5.1); Sodium Level 139 mmol/L (136-145)
[2021-10-24 14:04] LABS: PTHIN 48.3 pg/mL (18.4-80.1)
[2021-10-24 14:07] LABS: Vitamin D,25 Hydroxy 27.3 ng/mL
[2021-10-24 16:44] LABS: Protein, Urine (Random) 26.9 mg/dL (<11.9)
== END | disposition home or self-care (01) ==
PROVIDERS: PCP Internal Medicine
DX: N17.8 Other acute kidney failure (principal)
CPT/HCPCS: 36415; 80069; 82306; 82570; 83970; 84156; 85014; 85018

== ENCOUNTER → 2021-11-26 | Outpatient (CLI) | payer OTHER, SELFPAY ==
[2021-11-30 00:01] LABS: HPV Reflexed? NOT INDICATED
== END | disposition home or self-care (01) ==
LOC: LABSPEC 11:51
PROVIDERS: PCP Internal Medicine; Visit Provider Obstetrics & Gynecology
DX: Z12.4 Encounter for screening for malignant neoplasm of cervix (principal)
CPT/HCPCS: 88175; G0145